=== PATIENT | male | born 1975 | race Caucasian/White ===

== ENCOUNTER 2019-11-05 09:48 | Inpatient (IN) | payer MEDICAID ==
[2019-11-05] VITALS (11 sets, daily range): BP systolic 113–154; BP diastolic 58–105
[~2019-11-05] VITALS: Ht 185.4 cm; Wt 81.0 kg
[~2019-11-05 09:48] MED LIST: amiodarone 50MG/ML inj IV ONE; sod chloride 0.9% 10ml flush syringe IV ONE
[2019-11-05 10:45] LABS: BASOPHILS # (AUTO) 0.1 X10'3 (0-0.2); BASOPHILS % (AUTO) 0.6 % (0-1); EOSINOPHILS # (AUTO) 0.1 X10'3 (0-0.9); EOSINOPHILS % (AUTO) 0.4 % (0-6); HEMATOCRIT 48.6 % (42.0-52.0); LYMPHOCYTES # (AUTO) 2.6 X10'3 (1.1-4.8); MEAN CORPUSCULAR HEMOGLOBIN 29.9 PG (27.0-31.0); MEAN CORPUSCULAR VOLUME 90.7 FL (78-98); MEAN PLATELET VOLUME 8.7 FL (7.4-10.4); MONOCYTES # (AUTO) 0.9 X10'3 (0-0.9); MONOCYTES % (AUTO) 4.4 % (2-12); NEUTROPHILS # (AUTO) 17.7 X10'3 (1.8-7.7); NEUTROPHILS % (AUTO) 82.6 % (42-75); PLATELET COUNT 380 X10'3 (140-440); RED BLOOD COUNT 5.36 X10'6 (4.70-6.10); RED CELL DISTRIBUTION WIDTH 13.2 % (11.5-14.5); WHITE BLOOD COUNT 21.4 X10'3 (4.5-11.0)
[2019-11-05 10:58] LABS: PARTIAL THROMBOPLASTIN TIME 26 SECONDS (22-32)
[2019-11-05 11:01] LABS: ALANINE AMINOTRANSFERASE 17 U/L (12-78); ALBUMIN 3.6 G/DL (3.4-5.0); ALBUMIN/GLOBULIN RATIO 0.9 (1.1-1.5); ALKALINE PHOSPHATASE 124 IU/L (46-116); ANION GAP 14 (8-16); ASPARTATE AMINO TRANSFERASE 32 U/L (10-37); BILIRUBIN,TOTAL 0.7 MG/DL (0.1-1.0); BLOOD UREA NITROGEN 25 MG/DL (7-18); CALCIUM 9.5 MG/DL (8.5-10.1); CHLORIDE 94 MMOL/L (99-107); CREATININE 1.56 MG/DL (0.60-1.10); MAGNESIUM 1.9 MG/DL (1.5-2.4); POTASSIUM 4.8 MMOL/L (3.5-5.1); SODIUM 130 MMOL/L (135-145); TOTAL CARBON DIOXIDE 21.6 MMOL/L (24-32); TOTAL PROTEIN 7.5 G/DL (6.4-8.2); eGFR 49 ML/MIN
[2019-11-05 11:09] LABS: GLUCOSE 512 MG/DL (70-104)
[2019-11-05] MEDS ORDERED: normal saline 1000ML IV soln IVB ONE (11:10)
[2019-11-05] MEDS ORDERED: iohexol 350MG/ML 100ml bottle IV ONE (11:10)
[2019-11-05] MEDS ORDERED: insulin regular, human 10 units/0.1 ml syringe IV ONE (11:10)
[2019-11-05] MEDS ORDERED: iohexol 350 MG/ML 50ML vial IV ONE (11:11)
[2019-11-05] MEDS ORDERED: NO HOME MEDS (11:12)
--- NOTE | 2019-11-05 11:14 | NUR ---
To CT scan via w/c, will resume IV fluid upon return from CT scan. Insulin dose is pending from pharmacy.
--- NOTE | 2019-11-05 11:40 | NUR ---
Phoned pharmacy to inquire about the pending insulin dose. She reported they will make it available for ED staff to remove from the omnicell.
[2019-11-05] MEDS ORDERED: insulin regular, human U-100 3ml vial - multi-dose IV ONE ×2 (11:45→15:00)
[2019-11-05] MEDS ORDERED: heparin 1,000 UNITS/NS 500ml 500 ML ONE (12:35)
[2019-11-05] MEDS ORDERED: fentaNYL/PF 50MCG/1 ML 2ML syringe ONE (12:35)
[2019-11-05] MEDS ORDERED: LIDOcaine 1%/PF 5ML 10 MG/ML VIAL ONE (12:35)
[2019-11-05] MEDS ORDERED: iohexol 300mg/ml 100ml inj. ONE (12:36)
--- NOTE | 2019-11-05 12:55 | NUR ---
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 Pt is going to have intervention for blockages in the lower extremities. It is unclear if the patient will return to the ED or go to an admission bed. Belongings and chart sent with the patient.
[2019-11-05] MEDS ORDERED: midazolam 2 mg/2 ml injection ONE ×2 (13:01→15:03)
[2019-11-05] MEDS ORDERED: tPA-cathflo 2mg/2ml IV flush 4 MG in normal saline 100ml IV soln 100 ML ICATH SCH ×2 (13:45→13:50)
[2019-11-05] MEDS ORDERED: heparin 10,000 units/1 ML INJ ONE (14:31)
[2019-11-05] MEDS ORDERED: LIDOcaine 1% (10mg/ml) 2ml vial ONE (14:31)
[2019-11-05] MEDS ORDERED: heparin 10,000 units/1 ML INJ IV ONE (14:50)
[2019-11-05] MEDS ORDERED: insulin regular, human U-100 3ml vial - multi-dose SQ ONE (15:00)
[2019-11-05] MEDS ORDERED: sevoflurane 250ml liquid IH ONE (15:00)
[2019-11-05] MEDS ORDERED: dexamethasone sod phosphate 10mg/ml inj ONE (15:00)
[2019-11-05 15:03] LABS: BASOPHILS # (AUTO) 0.1 X10'3 (0-0.2); BASOPHILS % (AUTO) 0.5 % (0-1); EOSINOPHILS % (AUTO) 0.1 % (0-6); HEMATOCRIT 45.8 % (42.0-52.0); HEMOGLOBIN 15.4 g/dl (14.0-17.9); LYMPHOCYTES # (AUTO) 2.6 X10'3 (1.1-4.8); LYMPHOCYTES % (AUTO) 14.1 % (21-51); MEAN CORPUSCULAR HEMOGLOBIN 30.2 PG (27.0-31.0); MEAN CORPUSCULAR HGB CONC 33.5 g/dL (33.0-36.5); MEAN PLATELET VOLUME 8.4 FL (7.4-10.4); MONOCYTES # (AUTO) 1.2 X10'3 (0-0.9); MONOCYTES % (AUTO) 6.3 % (2-12); NEUTROPHILS # (AUTO) 14.7 X10'3 (1.8-7.7); PLATELET COUNT 349 X10'3 (140-440); RED BLOOD COUNT 5.09 X10'6 (4.70-6.10); RED CELL DISTRIBUTION WIDTH 13.1 % (11.5-14.5); WHITE BLOOD COUNT 18.6 X10'3 (4.5-11.0)
--- NOTE | 2019-11-05 15:15 | NUR ---
Report received from Pool BRYSON RN. Pt. not admitted to ICU yet. blood sugar 307 on admission to unit. 12 units of regular insulin Sub q and 12 units of regular insulin ordered IV verbally by Dr. Kirby (Anesthesia). Heparin cardiac protocol ordered per Dr. Noble. 4000u bolus given by this RN per Cardiac heparin protocol. Heparin drip to be started in OR.
[2019-11-05 15:16] LABS: PARTIAL THROMBOPLASTIN TIME 25 SECONDS (22-32)
[2019-11-05] MEDS ORDERED: Insulin Reg/NS 100units/100mL 100 ML IV ONE (15:55)
[2019-11-05] MEDS ORDERED: insulin regular, human inj. 100 UNITS in normal saline 100ml IV IV SCH (16:00)
[2019-11-05] MEDS ORDERED: LIDOcaine 2% 10ml TOPICAL JELLY (Urojet) TP ONE (16:10)
[2019-11-05] MEDS ORDERED: sodium phosphate inj. 15 MMOL in dextrose 5%-water 250 ML IV PRN (16:10)
[2019-11-05] MEDS ORDERED: acetaminophen 325mg tablet PO PRN ×2 (16:10)
[2019-11-05] MEDS ORDERED: magnesium 4gm in 100ml NS 100 ML IV PRN (16:10)
[2019-11-05] MEDS ORDERED: magnesium 2GM in 50ml NS 50 ML IV PRN (16:10)
[2019-11-05] MEDS ORDERED: fentaNYL /PF 50mcg/ml 5ml ampule ONE (16:10)
[2019-11-05] MEDS ORDERED: potassium Cl 20 mEq SR tablet PO PRN (16:10)
[2019-11-05] MEDS ORDERED: morphine 4 MG/ML inj SYRINge IV PRN (16:10)
[2019-11-05] MEDS ORDERED: magnesium Cl slow-release 64mg tablet PO PRN (16:10)
[2019-11-05] MEDS ORDERED: sodium phosphate inj. 30 MMOL in dextrose 5%-water 250 ML IV PRN (16:10)
[2019-11-05] MEDS ORDERED: Neutra Phos packet PO PRN (16:10)
[2019-11-05] MEDS ORDERED: ondansetron/PF 4mg/2ml inj IV PRN (16:10)
[2019-11-05] MEDS ORDERED: ipratropium/albuterol 3ml nebule NEB PRN (16:10)
[2019-11-05] MEDS ORDERED: ePHEDrine 50MG/ML INJ. ONE (16:13)
[2019-11-05] MEDS ORDERED: ceFAZolin 1000mg inj ONE ×2 (16:13)
[2019-11-05] MEDS ORDERED: propofol inj 20 ML IV ONE ×2 (16:14)
[2019-11-05] MEDS ORDERED: LIDOcaine 2% (20mg/ml) 5ml vial ONE (16:14)
[2019-11-05] MEDS ORDERED: 0.9 % SODIUM CHLORIDE 10 ML VIAL ONE ×3 (16:14→16:26)
[2019-11-05] MEDS ORDERED: rocuronium 10mg/ml inj IV ONE (16:14)
[2019-11-05] MEDS ORDERED: phenylephrine 10mg/ml inj. ONE (16:26)
[2019-11-05] MEDS: NORepinephrine 8 MG in NS 250ml IV soln IV SCH (16:30)
[2019-11-05] MEDS ORDERED: ondansetron/PF 4mg/2ml inj ONE (16:33)
[2019-11-05] MEDS ORDERED: neostigmine methylsulfate 1 MG/ML 10ml vial ONE (16:50)
[2019-11-05] MEDS ORDERED: glycopyrrolate 0.2mg/ml inj ONE (16:50)
[2019-11-05] MEDS: heparin 25,000 UNIT/250ml bag 250 ML IV SCH (17:00)
--- NOTE | 2019-11-05 18:30 | NUR ---
Patient in room CICU 2013. I have received report from Nicole FIELDS, and had the opportunity to ask questions and assume patient care.
[2019-11-05] MEDS ORDERED: metoprolol tartrate 1mg/ml inj IV ONE ×2 (18:45→19:05)
[2019-11-05] MEDS: normal saline 1000ml 1,000 ML IV SCH (19:00)
[2019-11-05] MEDS: HYDROcodone/acetaminophen 10/325mg tab PO PRN (20:41)
[2019-11-05] MEDS: docusate sod 100mg capsule PO SCH (20:41)
[2019-11-05] MEDS: vancomycin/NS 1 GM ADD-VANTAGE 250 ML IV SCH (20:43)
[2019-11-05 22:48] LABS: CLARITY,URINE SLIGHTLY CLOUDY (Clear); COLOR,URINE YELLOW (Yellow); GLUCOSE, URINE NEGATIVE (Neg); KETONES,URINE NEGATIVE (Neg); LEUKOCYTE ESTERASE ,URINE NEGATIVE (Neg); NITRITES, URINE NEGATIVE (Neg); OCCULT BLOOD,URINE SMALL (Neg); PH,URINE 5.5 (4.8-8.0); PROTEIN,URINE TRACE mg/dl (Neg)
[2019-11-05 23:00] LABS: URINE AMPHETAMINE SCREEN POSITIVE (Neg); URINE BARBITUATE SCREEN NEGATIVE (Neg); URINE BENZODIAZEPINES SCREEN POSITIVE (Neg); URINE CANNABINOID SCREEN POSITIVE (Neg); URINE COCAINE SCREEN NEGATIVE (Neg); URINE METHADONE SCREEN NEGATIVE (Neg); URINE OPIATE SCREEN POSITIVE (Neg); URINE PHENCYCLIDINE SCREEN NEGATIVE (Neg)
[2019-11-05 23:15] LABS: UA COLLECTION TYPE FOLEY CATH
[2019-11-05 23:18] LABS: BACTERIA,URINE NONE SEEN /HPF (Neg); WBC,URINE 0-4 /HPF (0-4)
[2019-11-05 23:19] LABS: MUCUS STRANDS FEW /LPF (Neg); SQUAMOUS EPITHELIAL CELL,UR FEW /LPF (FEW)
[2019-11-05] MEDS: heparin 10,000 units/1 ML INJ IV PRN (23:31)
--- NOTE | 2019-11-05 23:35 | NUR ---
PTT came back subtherapeutic at 33. PT given heparin bolus and rate increase per protocol. Will continue to monitor.
[2019-11-06] VITALS (24 sets, daily range): BP systolic 114–189; BP diastolic 64–92
[2019-11-06 02:41] LABS: BASOPHILS % (AUTO) 0.2 % (0-1); EOSINOPHILS % (AUTO) 0 % (0-6); HEMATOCRIT 39.4 % (42.0-52.0); HEMOGLOBIN 13.2 g/dl (14.0-17.9); LYMPHOCYTES # (AUTO) 1.7 X10'3 (1.1-4.8); LYMPHOCYTES % (AUTO) 9.7 % (21-51); MEAN CORPUSCULAR HEMOGLOBIN 30.2 PG (27.0-31.0); MEAN CORPUSCULAR HGB CONC 33.6 g/dL (33.0-36.5); MEAN CORPUSCULAR VOLUME 89.8 FL (78-98); MEAN PLATELET VOLUME 8.4 FL (7.4-10.4); MONOCYTES # (AUTO) 1.3 X10'3 (0-0.9); MONOCYTES % (AUTO) 7.2 % (2-12); NEUTROPHILS # (AUTO) 14.5 X10'3 (1.8-7.7); NEUTROPHILS % (AUTO) 82.9 % (42-75); PLATELET COUNT 324 X10'3 (140-440); RED BLOOD COUNT 4.38 X10'6 (4.70-6.10); RED CELL DISTRIBUTION WIDTH 13.3 % (11.5-14.5); WHITE BLOOD COUNT 17.4 X10'3 (4.5-11.0)
[2019-11-06 02:50] LABS: ALANINE AMINOTRANSFERASE 21 U/L (12-78); ALBUMIN 2.7 G/DL (3.4-5.0); ALBUMIN/GLOBULIN RATIO 0.8 (1.1-1.5); ALKALINE PHOSPHATASE 90 IU/L (46-116); ANION GAP 8 (8-16); ASPARTATE AMINO TRANSFERASE 69 U/L (10-37); BILIRUBIN,TOTAL 0.4 MG/DL (0.1-1.0); BLOOD UREA NITROGEN 18 MG/DL (7-18); BUN/CREATININE RATIO 18.9 (5.4-32.0); CALCIUM 8.6 MG/DL (8.5-10.1); CHLORIDE 106 MMOL/L (99-107); CREATININE 0.95 MG/DL (0.60-1.10); GLUCOSE 137 MG/DL (70-104); MAGNESIUM 1.6 MG/DL (1.5-2.4); PHOSPHORUS 4.8 MG/DL (2.3-4.5); POTASSIUM 4.2 MMOL/L (3.5-5.1); SODIUM 137 MMOL/L (135-145); TOTAL CARBON DIOXIDE 23.3 MMOL/L (24-32); TOTAL PROTEIN 5.9 G/DL (6.4-8.2); eGFR 87 ML/MIN
[2019-11-06] MEDS: HYDROcodone/acetaminophen 10/325mg tab PO PRN ×4 (04:31→23:43)
[2019-11-06] MEDS: normal saline 1000ml 1,000 ML IV SCH ×2 (05:28→18:48)
[2019-11-06 06:16] LABS: PARTIAL THROMBOPLASTIN TIME 44 SECONDS (22-32)
--- NOTE | 2019-11-06 06:39 | NUR ---
Problems reprioritized. Patient report given, questions answered & plan of care reviewed with Art RN.
[2019-11-06 06:49] LABS: HEMOGLOBIN A1C 11.6 % (4.5-6.2)
[2019-11-06] MEDS: heparin 10,000 units/1 ML INJ IV PRN (07:06)
[2019-11-06] MEDS: pantoprazole 40mg Tablet.DR PO SCH (07:37)
[2019-11-06] MEDS: docusate sod 100mg capsule PO SCH ×2 (07:37→20:03)
[2019-11-06] MEDS: vancomycin/NS 1 GM ADD-VANTAGE 250 ML IV SCH ×3 (07:37→23:40)
[2019-11-06] MEDS ORDERED: digoxin 250mcg (0.25mg) tablet PO ONE (07:50)
[2019-11-06] MEDS: nicotine 21mg patch - 24 hr TD SCH (11:37)
--- NOTE | 2019-11-06 12:12 | NUR ---
DM Consult: A1C 11.6. Pt admit w/ bilateral leg pain DX bilateral leg embolus s/p bilateral popliteal embolectomy. DX L ventricular thrombus, hyponatremia, SANTOS resolved, cardiomyopathy possibly ischemic, leukocytosis, and in process of r/o rhabdomyolysis per MD. Pt hx smoking, homeless, and meth abuse positive for opiates, meth, and benzodiazepines on admit. Pt is newly DX DM per MD; currently receiving insulin drip. Pt is not aware of new DX at this time pending MD visit per RN today. Will be able to provide DM ed once pt educated on new DM DX by MD. PO 75% one item documented last night pending further PO today renal/carb controlled diet. LBM 11/03 receiving colace. Will continue to monitor. Rec: 1. continue carb controlled/renal diet 2. monitor for ONS needs 3. routine bowel care 4. scaled wt 5. DM ed once stable and new DM DX reviewed w/ pt Addendum: 11/06/19 at [address] Amended: Links added.
[2019-11-06] MEDS: NORepinephrine 8 MG in NS 250ml IV soln IV SCH (13:20)
--- NOTE | 2019-11-06 14:13 | NUR ---
ptt therapeutic, no change to heparin gtt.
[2019-11-06] MEDS: heparin 25,000 UNIT/250ml bag 250 ML IV SCH ×2 (14:19→19:16)
--- NOTE | 2019-11-06 15:24 | NUR ---
Insulin gtt canceled by
--- NOTE | 2019-11-06 18:36 | NUR ---
Patient in room CICU 2013. I have received report from Art RN, and had the opportunity to ask questions and assume patient care.
[2019-11-06] MEDS ORDERED: heparin 10,000 units/1 ML INJ IV ONE (19:20)
--- NOTE | 2019-11-06 19:23 | NUR ---
Dr King called after not being able to find a palpable or Doppler pulses in RT foot, LT foot has a Doppler post tibial but not a dorsalis pedis, both feet are warm, RT is slightly cooler than LT and both feet are more pale. This is a change in condition from when I left this AM. Received in report that PT's pulses had been diminishing through out the day. Dr King inquired about PT being anticoagulated, PT is on Cardiac Protocol, received order to change PT over to DVt Protocol. PTT drawn and will follow protocol accordingly. Will continue to monitor.
[2019-11-06] MEDS: morphine 2 MG/ML inj. syringe IV PRN ×2 (19:55→21:01)
[2019-11-06] MEDS: lactobacillus rhamnosus 10,000 MMU CELLS/CAPSULE PO SCH (20:02)
[2019-11-07] VITALS (21 sets, daily range): BP systolic 102–183; BP diastolic 65–98
--- NOTE | 2019-11-07 | NUR ---
PT resting with no s/s of distress noted at this time. VSS. Bed is locked and low. Call light is within reach. Will continue to monitor.
[2019-11-07] MEDS: normal saline 1000ml 1,000 ML IV SCH (01:56)
[2019-11-07 02:54] LABS: BASOPHILS # (AUTO) 0.1 X10'3 (0-0.2); BASOPHILS % (AUTO) 0.7 % (0-1); EOSINOPHILS # (AUTO) 0.1 X10'3 (0-0.9); EOSINOPHILS % (AUTO) 0.6 % (0-6); HEMATOCRIT 36.5 % (42.0-52.0); HEMOGLOBIN 12.1 g/dl (14.0-17.9); LYMPHOCYTES # (AUTO) 3.7 X10'3 (1.1-4.8); LYMPHOCYTES % (AUTO) 18.3 % (21-51); MEAN CORPUSCULAR HEMOGLOBIN 30.2 PG (27.0-31.0); MEAN CORPUSCULAR HGB CONC 33.2 g/dL (33.0-36.5); MONOCYTES # (AUTO) 1.6 X10'3 (0-0.9); MONOCYTES % (AUTO) 8.2 % (2-12); NEUTROPHILS # (AUTO) 14.4 X10'3 (1.8-7.7); NEUTROPHILS % (AUTO) 72.2 % (42-75); PLATELET COUNT 304 X10'3 (140-440); RED BLOOD COUNT 4.01 X10'6 (4.70-6.10); RED CELL DISTRIBUTION WIDTH 13.3 % (11.5-14.5)
[2019-11-07 03:05] LABS: ALANINE AMINOTRANSFERASE 36 U/L (12-78); ALBUMIN 2.5 G/DL (3.4-5.0); ALBUMIN/GLOBULIN RATIO 0.8 (1.1-1.5); ALKALINE PHOSPHATASE 105 IU/L (46-116); ANION GAP 7 (8-16); ASPARTATE AMINO TRANSFERASE 67 U/L (10-37); BILIRUBIN,TOTAL 0.4 MG/DL (0.1-1.0); BLOOD UREA NITROGEN 11 MG/DL (7-18); BUN/CREATININE RATIO 11.5 (5.4-32.0); CHLORIDE 102 MMOL/L (99-107); CREATININE 0.96 MG/DL (0.60-1.10); GLUCOSE 250 MG/DL (70-104); MAGNESIUM 1.5 MG/DL (1.5-2.4); PHOSPHORUS 2.9 MG/DL (2.3-4.5); POTASSIUM 3.6 MMOL/L (3.5-5.1); SODIUM 133 MMOL/L (135-145); TOTAL PROTEIN 5.6 G/DL (6.4-8.2); eGFR 85 ML/MIN
[2019-11-07] MEDS: HYDROcodone/acetaminophen 10/325mg tab PO PRN ×4 (03:50→22:00)
--- NOTE | 2019-11-07 06:30 | NUR ---
Patient in room CICU 2013. I have received report from DONNIE George and had the opportunity to ask questions and assume patient care.
--- NOTE | 2019-11-07 06:44 | NUR ---
Problems reprioritized. Patient report given, questions answered & plan of care reviewed with Berny FIELDS.
[2019-11-07] MEDS ORDERED: VANCOMYCIN LEVEL IV ONE (07:30)
[2019-11-07] MEDS: vancomycin/NS 1 GM ADD-VANTAGE 250 ML IV SCH (07:41)
[2019-11-07] MEDS: lactobacillus rhamnosus 10,000 MMU CELLS/CAPSULE PO SCH ×2 (07:42→19:53)
[2019-11-07] MEDS: pantoprazole 40mg Tablet.DR PO SCH (07:42)
[2019-11-07] MEDS: digoxin 125mcg (0.125mg) tablet PO SCH (07:42)
[2019-11-07] MEDS: docusate sod 100mg capsule PO SCH ×2 (07:42→19:53)
[2019-11-07] MEDS: nicotine 21mg patch - 24 hr TD SCH (07:42)
[2019-11-07] MEDS ORDERED: dextrose 50%-water 50ml dispensing syringe IV PRN ×2 (07:50)
[2019-11-07] MEDS ORDERED: glucagon, human recombinant 1mg kit SUBCUT PRN (07:50)
[2019-11-07] MEDS ORDERED: MESSAGE TO PHARMACY PO ONE (07:50)
[2019-11-07] MEDS ORDERED: dextrose ORAL solution 15 GM/59 ML bottle PO PRN (07:50)
[2019-11-07] MEDS: insulin Lispro (HumaLOG) vial - multi-dose SQ SCH ×3 (09:21→19:53)
[2019-11-07] MEDS: carVEDilol 3.125mg tablet PO SCH ×2 (09:58→19:53)
--- NOTE | 2019-11-07 10:24 | NUR ---
patient doing well, central line and west removed, urinal placed at bedside.
[2019-11-07] MEDS: heparin 25,000 UNIT/250ml bag 250 ML IV SCH ×2 (10:29→17:36)
--- NOTE | 2019-11-07 14:00 | NUR ---
patient had change in neuro status, was getting up with PT and suddenly had some expressive aphagia. after about 5 minute patient aphagia resolved. call made to Dr. King and stroke alert was called per MD. Patient taken for CT and CTA. Paula neuro RN came to bedside for tele neuro consult. will continue with heparin gtt and monitor neuro status.
[2019-11-07] MEDS ORDERED: iohexol 350MG/ML 100ml bottle IV ONE (15:07)
--- NOTE | 2019-11-07 15:44 | NUR ---
Malnutrition consult and DM consult. A1C 11.6; aware of DM and stated in note. Attempted bedside visit however patient not in room. Spoke with stroke nurse, reports patient in CT for stroke alert. Per documentation stroke scale is zero. RN stated that after the CT will have neuro consult. Will attempt bedside education and interview at another time. Will need written DM education handout with verbal review and referral to outpatient DM education class (currently on hold, provided with number for when classes resume). Has been eating 50-74% of meals. Low pt stated weight os 64 kg, need accurate scale weight for assessment of malnutrition. No edema. Will continue to follow and monitor for DM education and malnutrition. Rec: 1. continue carb controlled/renal diet 2. monitor for ONS needs 3. routine bowel care 4. need new scaled wt 5. provide written and verbal DM education Addendum: 11/07/19 at [address] Amended: Links added.
[2019-11-07] MEDS ORDERED: bisacodyl 10mg suppository rectal RC PRN (16:10)
[2019-11-07] MEDS ORDERED: lactulose 20gm/30ml cup PO PRN (16:10)
[2019-11-07] MEDS: VANCOmycin 1250MG/NS 250ml Bag 250 ML IV SCH (16:19)
--- NOTE | 2019-11-07 16:45 | NUR ---
patient report called to DONNIE Fuentes, patient stable and transported in wheelchair. placed on tele monitor and transferred with all belongings.
[2019-11-07] MEDS: heparin 10,000 units/1 ML INJ IV PRN (17:34)
--- NOTE | 2019-11-07 18:30 | NUR ---
Problems reprioritized. Patient report given, questions answered & plan of care reviewed with Marleni FIELDS.
--- NOTE | 2019-11-07 18:56 | NUR ---
Patient in room ORTHO 4022. I have received report from Gina FIELDS and had the opportunity to ask questions and assume patient care.
--- NOTE | 2019-11-07 19:33 | NUR ---
NOTIFIED PATIENT HAD A 6 BEAT RUN OF VTACH AT 1910, PATIENT DENIES ANY DISCOMFORT AND EATING DINNER. RECHECKED WITH CAGE TENDER AND PATIENT IN SR AT THIS TIME. VITAL SIGNS UNCHANGED
[2019-11-07] MEDS ORDERED: warfarin 5mg tablet PO ONE (21:00)
[2019-11-07] MEDS: insulin glargine (Lantus) pen - multi-dose SQ SCH (21:09)
--- NOTE | 2019-11-07 21:25 | NUR ---
I spoke to Pauly Carrion NP who is extrusion die template maker for the critical care group and he said to transfer the patient to the telemetry unit floor as previously ordered. He was made aware of the pt's frequent VT on tele without symptoms and electrolytes stable and vitals stable. The pt's cardiac status is more urgent then the neurological status at this point; I made Colton aware of the results of the acute to subacute ischemia on the ct of head done today. Also informed him of the pt's EF 20% and clot to the left ventricle and issues with clots to the LE's. I spoke to the nursing pipelines supervisor and he has given me a room assignment on Telemetry. Patient is still on heparin drip for his cardiac/ vascular issues in regarding the clots and will help in anticoagulant for stroke.
[2019-11-08] VITALS (22 sets, daily range): BP systolic 94–139; BP diastolic 54–110
[2019-11-08] MEDS: VANCOmycin 1250MG/NS 250ml Bag 250 ML IV SCH ×2 (00:16→08:51)
[2019-11-08 00:48] LABS: ALANINE AMINOTRANSFERASE 35 U/L (12-78); ALBUMIN 2.1 G/DL (3.4-5.0); ALBUMIN/GLOBULIN RATIO 0.7 (1.1-1.5); ALKALINE PHOSPHATASE 132 IU/L (46-116); ANION GAP 9 (8-16); ASPARTATE AMINO TRANSFERASE 53 U/L (10-37); BASOPHILS # (AUTO) 0.2 X10'3 (0-0.2); BASOPHILS % (AUTO) 1.2 % (0-1); BILIRUBIN,TOTAL 0.3 MG/DL (0.1-1.0); BLOOD UREA NITROGEN 12 MG/DL (7-18); BUN/CREATININE RATIO 14.8 (5.4-32.0); CALCIUM 8.3 MG/DL (8.5-10.1); CHLORIDE 102 MMOL/L (99-107); CREATININE 0.81 MG/DL (0.60-1.10); EOSINOPHILS # (AUTO) 0.1 X10'3 (0-0.9); EOSINOPHILS % (AUTO) 0.7 % (0-6); GLUCOSE 165 MG/DL (70-104); HEMOGLOBIN 11.4 g/dl (14.0-17.9); LYMPHOCYTES # (AUTO) 4.4 X10'3 (1.1-4.8); LYMPHOCYTES % (AUTO) 28.3 % (21-51); MAGNESIUM 1.8 MG/DL (1.5-2.4); MEAN CORPUSCULAR HGB CONC 34.5 g/dL (33.0-36.5); MEAN PLATELET VOLUME 9.4 FL (7.4-10.4); MONOCYTES # (AUTO) 1.5 X10'3 (0-0.9); MONOCYTES % (AUTO) 9.3 % (2-12); NEUTROPHILS # (AUTO) 9.5 X10'3 (1.8-7.7); NEUTROPHILS % (AUTO) 60.5 % (42-75); PHOSPHORUS 2.5 MG/DL (2.3-4.5); PLATELET COUNT 286 X10'3 (140-440); POTASSIUM 3.3 MMOL/L (3.5-5.1); RED BLOOD COUNT 3.66 X10'6 (4.70-6.10); RED CELL DISTRIBUTION WIDTH 13.4 % (11.5-14.5); SODIUM 137 MMOL/L (135-145); TOTAL CARBON DIOXIDE 26.1 MMOL/L (24-32); TOTAL PROTEIN 5.3 G/DL (6.4-8.2); WHITE BLOOD COUNT 15.7 X10'3 (4.5-11.0); eGFR > 90 ML/MIN
--- NOTE | 2019-11-08 00:57 | NUR ---
VERBAL REPORT CALLED TO JOIE FIELDS ON TELEMETRY FLOOR, QUESTIONS ANSWERED AND PATIENT TRANSFERRED IN ORTHO BED WITH MEDS AND BELONGINGS FOR CLOSER MONITORING OF CARDIAC ISSUES.
[2019-11-08] MEDS: potassium Cl 20 mEq SR tablet PO PRN ×7 (01:35→23:43)
--- NOTE | 2019-11-08 03:08 | NUR ---
pt sustained V. Tach with no pulse, CPR started, code blue initiated, one shock delivered pt returned to sinus rhythm Addendum: 11/08/19 at 0418 by Oniel Davison RN 150mg of amiodarone given IV, pt transferred to ICU.
--- NOTE | 2019-11-08 03:24 | NUR ---
Patient arrived to CICU status post CODE BLUE. Patient report at bedside from DONNIE Cabrera. Patient is awake and alert x4. Patient placed on monitor worker showing normal sinus rhythm at 88 with frequent Multifocal PVC's. Loading dose of Amiodarone 150mg administered prior to transfer from PCU. Bilateral lung sounds clear to the upper lobes, diminished to the bases. Oxygen in place via nasal cannula at 2 lpm. IV heparin infusing at 1400 units/hr. Patient with 20 ga IV to right AC and right forearm. Patient with surgical incisions to bilateral lower extremities, island dressings clean, dry and intact. Pulses to lower extremities present by doppler. Prophylactic optifoam dressing to coccyx. Patient was incontinent of urine during code. Defibrillation pads left on chest. Defibrillator at bedside. Magnesium replacement and amiodarone infusions started per provider orders. Patient received one PO dose of Potassium prior to events. Will continue to monitor, patient in view of DONNIE
--- NOTE | 2019-11-08 03:30 | NUR ---
Responded to code blue; upon arrival, patient unresponsive, CPR in progress; checked rhythm on monitor and pt in rapid vtach; compressions stopped, pt shocked x 1 at 150J and CPR resumed very briefly and then pt awake, moving extremities; pt answering questions, BP 143/78, RT at bedside assisting w/ventilations, pt placed NRB; .Dr. Mike responded to code, gave 150mg amio IV as ordered; pt transferred on monitor w/belongings to [facility] room 2013 at 0325; Dionne aware. Addendum: 11/08/19 at 0576 by Bonita Brantley RN Patients belonging bag x1, cell phone and buccaro with patient.
[2019-11-08] MEDS ORDERED: magnesium 2GM in 50ml NS 50 ML IV ONE (03:40)
[2019-11-08] MEDS: amiodarone/D5 360MG/200ML BAG 200 ML IV SCH ×5 (03:55→21:27)
[2019-11-08] MEDS: HYDROcodone/acetaminophen 5mg/325mg tablet PO PRN (04:50)
--- NOTE | 2019-11-08 06:20 | NUR ---
Problems reprioritized. Patient report given, questions answered & plan of care reviewed with DONNIE Cantu.
--- NOTE | 2019-11-08 06:58 | NUR ---
Troponin 4.4 reported to Spencer; orders received
[2019-11-08] MEDS: nicotine 21mg patch - 24 hr TD SCH (08:00)
[2019-11-08] MEDS: docusate sod 100mg capsule PO SCH ×2 (08:50→20:31)
[2019-11-08] MEDS: lactobacillus rhamnosus 10,000 MMU CELLS/CAPSULE PO SCH ×2 (08:50→20:30)
[2019-11-08] MEDS: lisinopril 2.5mg tablet PO SCH (08:50)
[2019-11-08] MEDS: carVEDilol 3.125mg tablet PO SCH ×2 (08:50→20:31)
[2019-11-08] MEDS: digoxin 125mcg (0.125mg) tablet PO SCH (08:51)
[2019-11-08] MEDS: pantoprazole 40mg Tablet.DR PO SCH (08:53)
[2019-11-08] MEDS: heparin 25,000 UNIT/250ml bag 250 ML IV SCH (09:08)
[2019-11-08] MEDS: insulin Lispro (HumaLOG) vial - multi-dose SQ SCH ×3 (09:14→18:48)
[2019-11-08 12:57] LABS: POTASSIUM 3.6 MMOL/L (3.5-5.1)
[2019-11-08 13:07] LABS: TROPONIN I 3.43 NG/ML (0.0-0.05)
--- NOTE | 2019-11-08 13:13 | NUR ---
Critical trop trending down reported to
--- NOTE | 2019-11-08 13:28 | NUR ---
F/u for consults: Attempted bedside visit however pt sleeping. Pt averaging 75-100% PO intake with some fluctuations meeting nutrient needs. No new scaled weight at this time. Pt s/p cardiac arrest this morning per MD notes. LBM 11/05, receiving routine bowel care. Will need to f/u for DM education and further malnutrition assessment once stable. Addendum: 11/08/19 at [address] Amended: Links added.
[2019-11-08] MEDS ORDERED: VANCOMYCIN LEVEL IV ONE (15:30)
[2019-11-08] MEDS: vancomycin/NS 1 GM ADD-VANTAGE 250 ML X 1 DOSE IV SCH (16:51)
--- NOTE | 2019-11-08 18:20 | NUR ---
Patient in room CICU 2013. I have received report from DONNIE Cantu and had the opportunity to ask questions and assume patient care. Patient denies CP, SOB, dizziness, n/v and rated pain 0/10
[2019-11-08] MEDS ORDERED: warfarin 5mg tablet PO SCH (21:00)
[2019-11-08] MEDS: insulin glargine (Lantus) pen - multi-dose SQ SCH (21:24)
--- NOTE | 2019-11-08 22:33 | NUR ---
Per pharmacist hold Vancomycin scheduled at 0000 on 11/09/19. Last Vancomycin trough on 11/07 at 1534 was 20.9 Addendum: 11/08/19 at 2244 by Quincy Boyer RN Harish
--- NOTE | 2019-11-08 23:52 | NUR ---
Called Dr. Carrion to ask for magnesium level. Per Dr. Carrion mag at 1.8 is okay.
[2019-11-09] VITALS (23 sets, daily range): BP systolic 94–151; BP diastolic 60–105
[2019-11-09] MEDS: heparin 25,000 UNIT/250ml bag 250 ML IV SCH ×2 (02:32→20:58)
[2019-11-09 04:51] LABS: BASOPHILS # (AUTO) 0.2 X10'3 (0-0.2); EOSINOPHILS # (AUTO) 0.2 X10'3 (0-0.9); HEMATOCRIT 37.1 % (42.0-52.0); HEMOGLOBIN 12.5 g/dl (14.0-17.9); LYMPHOCYTES # (AUTO) 3.8 X10'3 (1.1-4.8); LYMPHOCYTES % (AUTO) 25.2 % (21-51); MEAN CORPUSCULAR HEMOGLOBIN 29.9 PG (27.0-31.0); MEAN CORPUSCULAR HGB CONC 33.6 g/dL (33.0-36.5); MEAN PLATELET VOLUME 9.4 FL (7.4-10.4); MONOCYTES # (AUTO) 1.4 X10'3 (0-0.9); MONOCYTES % (AUTO) 8.9 % (2-12); NEUTROPHILS # (AUTO) 9.7 X10'3 (1.8-7.7); NEUTROPHILS % (AUTO) 63.9 % (42-75); PLATELET COUNT 344 X10'3 (140-440); RED BLOOD COUNT 4.16 X10'6 (4.70-6.10); RED CELL DISTRIBUTION WIDTH 13.6 % (11.5-14.5); WHITE BLOOD COUNT 15.2 X10'3 (4.5-11.0)
[2019-11-09 05:07] LABS: PARTIAL THROMBOPLASTIN TIME 51 SECONDS (22-32)
[2019-11-09 05:09] LABS: ALANINE AMINOTRANSFERASE 95 U/L (12-78); ALBUMIN 2.3 G/DL (3.4-5.0); ALBUMIN/GLOBULIN RATIO 0.6 (1.1-1.5); ALKALINE PHOSPHATASE 258 IU/L (46-116); ANION GAP 6 (8-16); ASPARTATE AMINO TRANSFERASE 119 U/L (10-37); BILIRUBIN,TOTAL 0.3 MG/DL (0.1-1.0); BLOOD UREA NITROGEN 9 MG/DL (7-18); BUN/CREATININE RATIO 12.3 (5.4-32.0); CALCIUM 8.4 MG/DL (8.5-10.1); CHLORIDE 102 MMOL/L (99-107); CREATININE 0.73 MG/DL (0.60-1.10); GLUCOSE 173 MG/DL (70-104); MAGNESIUM 1.9 MG/DL (1.5-2.4); PHOSPHORUS 2.5 MG/DL (2.3-4.5); POTASSIUM 4.4 MMOL/L (3.5-5.1); SODIUM 135 MMOL/L (135-145); TOTAL CARBON DIOXIDE 26.8 MMOL/L (24-32); TOTAL PROTEIN 5.9 G/DL (6.4-8.2); eGFR > 90 ML/MIN
--- NOTE | 2019-11-09 06:15 | NUR ---
Problems reprioritized. Patient report given, questions answered & plan of care reviewed with Art, RN. Patient stable at shift change
--- NOTE | 2019-11-09 07:11 | NUR ---
Pt had a run of v-tach at 0648. Pt was alert, but drowsy. Pt briefly lost consciousness. Compressions were started but halted after pt rate converted to a sinus rhythm. Called Dr. Lauren who ordered 2gm of mag to be run over 4 hours and to keep the K above 4.5
[2019-11-09] MEDS ORDERED: magnesium 2GM in 50ml NS 50 ML IV STA (07:17)
[2019-11-09] MEDS: pantoprazole 40mg Tablet.DR PO SCH (07:30)
--- NOTE | 2019-11-09 07:44 | NUR ---
Pt in [facility] again. Called Lidocaine 100mg push and put on Lidocaine gtt
--- NOTE | 2019-11-09 07:47 | NUR ---
Lidocaine push given, call to pharmacy, they are setting up lido gtt order.
[2019-11-09] MEDS ORDERED: LIDOcaine 2 gm/250ml D5W 250 ML IV SCH (07:50)
[2019-11-09] MEDS: amiodarone/D5 360MG/200ML BAG 200 ML IV SCH ×4 (08:00→20:59)
[2019-11-09] MEDS: vancomycin/NS 1 GM ADD-VANTAGE 250 ML X 1 DOSE IV SCH ×4 (08:00→23:53)
[2019-11-09] MEDS: carVEDilol 3.125mg tablet PO SCH ×2 (08:49→20:45)
[2019-11-09] MEDS: docusate sod 100mg capsule PO SCH ×2 (08:49→20:44)
[2019-11-09] MEDS: lactobacillus rhamnosus 10,000 MMU CELLS/CAPSULE PO SCH ×2 (08:49→20:44)
[2019-11-09] MEDS: digoxin 125mcg (0.125mg) tablet PO SCH (08:50)
[2019-11-09] MEDS: lisinopril 2.5mg tablet PO SCH (08:50)
[2019-11-09] MEDS: nicotine 21mg patch - 24 hr TD SCH (08:51)
[2019-11-09] MEDS: insulin Lispro (HumaLOG) vial - multi-dose SQ SCH ×3 (09:25→18:48)
--- NOTE | 2019-11-09 10:30 | NUR ---
Ptt is therapeutic. No change will be made to the rate.
--- NOTE | 2019-11-09 11:18 | NUR ---
F/u: Pt PO has declined to 0% breakfast this AM down from 75-100% avg previously meeting needs. Pt still having episodes of vtach per RN notes s/p code blue yesterday AM w/ severe cardiomyopathy per MD. Pt currently not appropriate for new DM DX diet ed; would benefit once more stable. Pt has no edema, good PO hx, no significant weakness noted, new scaled wt 73.3kg making BMI 21. Only accurate wt hx. At this time pt does not meet minimum malnutrition criteria. Will continue to monitor. Rec: 1. continue carb controlled/renal diet 2. monitor for ONS needs 3. routine bowel care 4. need new scaled wt 5. provide written and verbal DM education once more stable prior to d/c Addendum: 11/09/19 at [address] Amended: Links added.
[2019-11-09] MEDS: amiodarone 200mg tablet PO SCH ×2 (13:08→20:45)
[2019-11-09] MEDS: potassium Cl 20 mEq SR tablet PO PRN ×2 (13:08→16:51)
[2019-11-09] MEDS ORDERED: VANCOMYCIN LEVEL IV ONE (15:30)
--- NOTE | 2019-11-09 17:23 | NUR ---
Pulses in pt feet are only heard through doppler.
--- NOTE | 2019-11-09 18:30 | NUR ---
Patient in room CICU 2013. I have received report from Art RN and had the opportunity to ask questions and assume patient care.
[2019-11-09] MEDS: insulin glargine (Lantus) pen - multi-dose SQ SCH (20:55)
[2019-11-09] MEDS ORDERED: warfarin 5mg tablet PO ONE (21:00)
[2019-11-09] MEDS: dextrose ORAL solution 15 GM/59 ML bottle PO PRN (23:29)
--- NOTE | 2019-11-09 23:30 | NUR ---
Went into check on patient and patient was diaphoretic, pale and cool. Patient complains of being hot. Obtained Blood Sugar and it was 62. Gave patient orange Juice and Ant crackers and well as oral Dex 50. Recheck blood glucose is 98. Will continue to monitor patient closely.
[2019-11-10] VITALS (24 sets, daily range): BP systolic 91–132; BP diastolic 58–95
[2019-11-10] MEDS: amiodarone/D5 360MG/200ML BAG 200 ML IV SCH ×3 (02:42→20:04)
[2019-11-10 05:34] LABS: ALANINE AMINOTRANSFERASE 155 U/L (12-78); ALBUMIN 2.3 G/DL (3.4-5.0); ALBUMIN/GLOBULIN RATIO 0.6 (1.1-1.5); ALKALINE PHOSPHATASE 353 IU/L (46-116); ANION GAP 5 (8-16); ASPARTATE AMINO TRANSFERASE 175 U/L (10-37); BILIRUBIN,TOTAL 0.2 MG/DL (0.1-1.0); BLOOD UREA NITROGEN 13 MG/DL (7-18); BUN/CREATININE RATIO 12.7 (5.4-32.0); CALCIUM 8.7 MG/DL (8.5-10.1); CHLORIDE 100 MMOL/L (99-107); CREATININE 1.02 MG/DL (0.60-1.10); GLUCOSE 321 MG/DL (70-104); MAGNESIUM 2.1 MG/DL (1.5-2.4); PHOSPHORUS 3.9 MG/DL (2.3-4.5); POTASSIUM 4.4 MMOL/L (3.5-5.1); SODIUM 134 MMOL/L (135-145); TOTAL CARBON DIOXIDE 28.7 MMOL/L (24-32); eGFR 80 ML/MIN
[2019-11-10 05:36] LABS: PARTIAL THROMBOPLASTIN TIME 49 SECONDS (22-32)
[2019-11-10 05:40] LABS: BASOPHILS # (AUTO) 0.1 X10'3 (0-0.2); BASOPHILS % (AUTO) 0.7 % (0-1); EOSINOPHILS # (AUTO) 0.1 X10'3 (0-0.9); EOSINOPHILS % (AUTO) 0.9 % (0-6); HEMATOCRIT 36.6 % (42.0-52.0); HEMOGLOBIN 12.3 g/dl (14.0-17.9); LYMPHOCYTES # (AUTO) 3.5 X10'3 (1.1-4.8); LYMPHOCYTES % (AUTO) 23.5 % (21-51); MEAN CORPUSCULAR HGB CONC 33.7 g/dL (33.0-36.5); MEAN CORPUSCULAR VOLUME 89.2 FL (78-98); MEAN PLATELET VOLUME 10.4 FL (7.4-10.4); MONOCYTES # (AUTO) 1.2 X10'3 (0-0.9); MONOCYTES % (AUTO) 7.9 % (2-12); PLATELET COUNT 395 X10'3 (140-440); RED BLOOD COUNT 4.11 X10'6 (4.70-6.10); RED CELL DISTRIBUTION WIDTH 13.8 % (11.5-14.5); WHITE BLOOD COUNT 14.9 X10'3 (4.5-11.0)
[2019-11-10] MEDS: carVEDilol 3.125mg tablet PO SCH ×2 (08:00→20:26)
[2019-11-10] MEDS: nicotine 21mg patch - 24 hr TD SCH ×2 (08:00→08:24)
[2019-11-10] MEDS: amiodarone 200mg tablet PO SCH ×3 (08:22→20:26)
[2019-11-10] MEDS: pantoprazole 40mg Tablet.DR PO SCH (08:22)
[2019-11-10] MEDS: lactobacillus rhamnosus 10,000 MMU CELLS/CAPSULE PO SCH ×2 (08:23→20:26)
[2019-11-10] MEDS: lisinopril 2.5mg tablet PO SCH (08:23)
[2019-11-10] MEDS: docusate sod 100mg capsule PO SCH ×2 (08:23→20:26)
[2019-11-10] MEDS: vancomycin/NS 1 GM ADD-VANTAGE 250 ML X 1 DOSE IV SCH ×2 (08:24→16:13)
[2019-11-10] MEDS: potassium Cl 20 mEq SR tablet PO PRN ×2 (12:15→16:13)
--- NOTE | 2019-11-10 12:28 | NUR ---
Pt PTT reviewed and is therapeutic at 53. Next ptt will be ordered.
--- NOTE | 2019-11-10 12:43 | NUR ---
F/u: Pt more stable today and more appropriate per RN. Pt seen by RD for thorough written/verbal DM ed w/ RD contact information, new DM pamphlet, and new DM booklet provided. RD reviewed hydration, proteins, types of carbs, carb sources, portion sizing, nutrition facts labels, and importance of checking Glu regularly. Pt hx homeless and RD reviewed best food options for optimal Glu control if pt gets to point where he is able to choose available meal options. Pt declines further questions at this time. RD encouraged pt to attend CDE course once reopens and to call/e-mail RD if further questions following discharge as well as admit. Addendum: 11/10/19 at [address] Amended: Links added.
[2019-11-10] MEDS: insulin Lispro (HumaLOG) vial - multi-dose SQ SCH ×2 (13:06→20:35)
--- NOTE | 2019-11-10 13:16 | NUR ---
Pt walking with physical therapy
--- NOTE | 2019-11-10 15:21 | NUR ---
Dr Dill talked with pt and told him that he needs a heart cath, pt will be put on the schedule for Sunday. Dr. Dill also wanted to get an HIV and Hepatitis panel, which have been ordered. Pt to receive one mg of coumadin this evening.
[2019-11-10] MEDS ORDERED: VANCOMYCIN LEVEL IV ONE (15:30)
[2019-11-10 16:53] LABS: HIV ANTIBODY 1&2 RAPID NON-REACTIVE (Neg)
--- NOTE | 2019-11-10 18:19 | NUR ---
Patient in room CICU 2013. I have received report and had the opportunity to ask questions and assume patient care.
[2019-11-10] MEDS: insulin glargine (Lantus) pen - multi-dose SQ SCH (20:35)
[2019-11-10] MEDS ORDERED: warfarin 1mg tablet PO ONE (21:00)
[2019-11-10] MEDS ORDERED: warfarin 2.5mg tablet PO ONE (21:00)
[2019-11-11] VITALS (24 sets, daily range): BP systolic 101–148; BP diastolic 59–103
[2019-11-11] MEDS: VANCOmycin 1250MG/NS 250ml Bag 250 ML IV SCH ×5 (00:32→23:55)
[2019-11-11 01:01] LABS: BASOPHILS # (AUTO) 0.2 X10'3 (0-0.2); BASOPHILS % (AUTO) 1.4 % (0-1); EOSINOPHILS # (AUTO) 0.1 X10'3 (0-0.9); EOSINOPHILS % (AUTO) 0.9 % (0-6); HEMOGLOBIN 11.9 g/dl (14.0-17.9); LYMPHOCYTES # (AUTO) 3.8 X10'3 (1.1-4.8); MEAN CORPUSCULAR HEMOGLOBIN 30.1 PG (27.0-31.0); MEAN CORPUSCULAR HGB CONC 33.2 g/dL (33.0-36.5); MEAN CORPUSCULAR VOLUME 90.7 FL (78-98); MONOCYTES # (AUTO) 1.3 X10'3 (0-0.9); MONOCYTES % (AUTO) 7.8 % (2-12); NEUTROPHILS # (AUTO) 11.2 X10'3 (1.8-7.7); NEUTROPHILS % (AUTO) 66.9 % (42-75); PLATELET COUNT 403 X10'3 (140-440); RED BLOOD COUNT 3.96 X10'6 (4.70-6.10); WHITE BLOOD COUNT 16.7 X10'3 (4.5-11.0)
[2019-11-11 01:11] LABS: ALANINE AMINOTRANSFERASE 114 U/L (12-78); ALBUMIN 2.2 G/DL (3.4-5.0); ALBUMIN/GLOBULIN RATIO 0.6 (1.1-1.5); ALKALINE PHOSPHATASE 318 IU/L (46-116); ANION GAP 5 (8-16); ASPARTATE AMINO TRANSFERASE 84 U/L (10-37); BILIRUBIN,TOTAL 0.2 MG/DL (0.1-1.0); BLOOD UREA NITROGEN 10 MG/DL (7-18); BUN/CREATININE RATIO 10.4 (5.4-32.0); CALCIUM 8.4 MG/DL (8.5-10.1); CHLORIDE 102 MMOL/L (99-107); CREATININE 0.96 MG/DL (0.60-1.10); GLUCOSE 206 MG/DL (70-104); MAGNESIUM 1.7 MG/DL (1.5-2.4); PHOSPHORUS 3.3 MG/DL (2.3-4.5); POTASSIUM 4.1 MMOL/L (3.5-5.1); SODIUM 135 MMOL/L (135-145); TOTAL CARBON DIOXIDE 28.4 MMOL/L (24-32); TOTAL PROTEIN 5.8 G/DL (6.4-8.2); eGFR 85 ML/MIN
[2019-11-11] MEDS: heparin 10,000 units/1 ML INJ IV PRN (01:35)
[2019-11-11] MEDS: magnesium Cl slow-release 64mg tablet PO PRN ×2 (01:36→07:38)
[2019-11-11] MEDS: potassium Cl 20 mEq SR tablet PO PRN ×2 (01:37→07:38)
[2019-11-11] MEDS: heparin 25,000 UNIT/250ml bag 250 ML IV SCH ×3 (01:38→13:16)
[2019-11-11] MEDS: HYDROcodone/acetaminophen 10/325mg tab PO PRN (03:00)
[2019-11-11] MEDS: amiodarone/D5 360MG/200ML BAG 200 ML IV SCH ×4 (04:22→20:12)
--- NOTE | 2019-11-11 06:17 | NUR ---
Patient in room [facility] 2013. I have received report from Marni FIELDS and had the opportunity to ask questions and assume patient care. Addendum: 11/11/19 at 0617 by Jessica Tobias RN Amended: Links added.
[2019-11-11] MEDS: lactobacillus rhamnosus 10,000 MMU CELLS/CAPSULE PO SCH ×2 (07:37→20:08)
[2019-11-11] MEDS: lisinopril 2.5mg tablet PO SCH (07:37)
[2019-11-11] MEDS: carVEDilol 3.125mg tablet PO SCH ×2 (07:37→20:08)
[2019-11-11] MEDS: pantoprazole 40mg Tablet.DR PO SCH (07:37)
[2019-11-11] MEDS: docusate sod 100mg capsule PO SCH ×2 (07:38→20:08)
[2019-11-11] MEDS: amiodarone 200mg tablet PO SCH ×3 (07:38→20:08)
[2019-11-11] MEDS: insulin Lispro (HumaLOG) vial - multi-dose SQ SCH ×3 (08:25→20:18)
[2019-11-11 13:35] LABS: CLARITY,URINE SLIGHTLY CLOUDY (Clear); COLOR,URINE YELLOW (Yellow); GLUCOSE, URINE 250 mg/dl (Neg); KETONES,URINE NEGATIVE (Neg); LEUKOCYTE ESTERASE ,URINE TRACE (Neg); NITRITES, URINE NEGATIVE (Neg); OCCULT BLOOD,URINE NEGATIVE (Neg); PH,URINE 7.5 (4.8-8.0); PROTEIN,URINE NEGATIVE (Neg); UROBILINOGEN,URINE >=8.0 E.U/dL (0.2-1.0)
[2019-11-11 13:36] LABS: UA COLLECTION TYPE CLN CATCH MIDSTREAM
[2019-11-11 13:51] LABS: MUCUS STRANDS FEW /LPF (Neg); SQUAMOUS EPITHELIAL CELL,UR MODERATE /LPF (FEW)
[2019-11-11 13:54] LABS: BACTERIA,URINE 1+ /HPF (Neg); RBC,URINE 0-2 /HPF (0-2)
[2019-11-11 13:56] LABS: TRICHOMONAS,URINE MOD /HPF (NEGATIVE); WBC CLUMPS,URINE FEW /HPF (NEGATIVE)
--- NOTE | 2019-11-11 18:20 | NUR ---
Patient in room CICU 2013. I have received report from garrick castillo and had the opportunity to ask questions and assume patient care.
[2019-11-11] MEDS: insulin glargine (Lantus) pen - multi-dose SQ SCH (20:19)
[2019-11-11] MEDS ORDERED: temazepam 15mg capsule PO PRN (20:40)
[2019-11-11] MEDS: HYDROcodone/acetaminophen 5mg/325mg tablet PO PRN (23:24)
[2019-11-11] MEDS ORDERED: VANCOMYCIN LEVEL IV ONE (23:30)
--- NOTE | 2019-11-11 23:55 | NUR ---
lab reported critical vanco trough. vanco drip was stopped and held due to critical lab results. md and pharmacy notified
[2019-11-12] VITALS (23 sets, daily range): BP systolic 98–134; BP diastolic 51–96
[2019-11-12] MEDS: amiodarone/D5 360MG/200ML BAG 200 ML IV SCH ×6 (04:38→23:29)
--- NOTE | 2019-11-12 04:55 | NUR ---
pt wrist and groin shaved, chg bath given, linens and gown changed, extension tubing connected in preparation for cardiac cath in AM. will continue to monitor
[2019-11-12 05:13] LABS: BASOPHILS # (AUTO) 0.1 X10'3 (0-0.2); BASOPHILS % (AUTO) 0.8 % (0-1); EOSINOPHILS % (AUTO) 0.3 % (0-6); HEMOGLOBIN 12.6 g/dl (14.0-17.9); LYMPHOCYTES # (AUTO) 3.2 X10'3 (1.1-4.8); LYMPHOCYTES % (AUTO) 19.1 % (21-51); MEAN CORPUSCULAR HEMOGLOBIN 30.8 PG (27.0-31.0); MEAN CORPUSCULAR HGB CONC 34.1 g/dL (33.0-36.5); MEAN CORPUSCULAR VOLUME 90.3 FL (78-98); MONOCYTES # (AUTO) 1.6 X10'3 (0-0.9); MONOCYTES % (AUTO) 9.6 % (2-12); NEUTROPHILS # (AUTO) 11.7 X10'3 (1.8-7.7); NEUTROPHILS % (AUTO) 70.2 % (42-75); PLATELET COUNT 432 X10'3 (140-440); RED CELL DISTRIBUTION WIDTH 13.5 % (11.5-14.5); WHITE BLOOD COUNT 16.7 X10'3 (4.5-11.0)
[2019-11-12 05:34] LABS: ALANINE AMINOTRANSFERASE 72 U/L (12-78); ALBUMIN 2.2 G/DL (3.4-5.0); ALBUMIN/GLOBULIN RATIO 0.6 (1.1-1.5); ALKALINE PHOSPHATASE 275 IU/L (46-116); ANION GAP 4 (8-16); ASPARTATE AMINO TRANSFERASE 24 U/L (10-37); BILIRUBIN,TOTAL 0.4 MG/DL (0.1-1.0); BLOOD UREA NITROGEN 9 MG/DL (7-18); BUN/CREATININE RATIO 9.2 (5.4-32.0); CALCIUM 8.5 MG/DL (8.5-10.1); CHLORIDE 101 MMOL/L (99-107); CREATININE 0.98 MG/DL (0.60-1.10); GLUCOSE 80 MG/DL (70-104); MAGNESIUM 1.8 MG/DL (1.5-2.4); PHOSPHORUS 4.7 MG/DL (2.3-4.5); SODIUM 136 MMOL/L (135-145); TOTAL CARBON DIOXIDE 30.7 MMOL/L (24-32); TOTAL PROTEIN 6.1 G/DL (6.4-8.2); eGFR 83 ML/MIN
--- NOTE | 2019-11-12 07:02 | NUR ---
Hep gtt off for cath
[2019-11-12 07:09] LABS: HBSAG SCREEN Negative (Negative); HEP A AB, IGM Negative (Negative); HEP B CORE AB, IGM Negative (Negative); HEPATITIS C ANTIBODY <0.1 s/co ratio (0.0-0.9)
[2019-11-12] MEDS: magnesium Cl slow-release 64mg tablet PO PRN (07:09)
[2019-11-12] MEDS: potassium Cl 20 mEq SR tablet PO PRN (07:09)
--- NOTE | 2019-11-12 07:26 | NUR ---
Spoke with clinical pharmacist. He said it's ok to give the 0800 Vanco. He will adjust dose for next administration.
[2019-11-12] MEDS ORDERED: VANCOMYCIN LEVEL IV ONE (07:30)
[2019-11-12] MEDS: VANCOmycin 1250MG/NS 250ml Bag 250 ML IV SCH (07:40)
[2019-11-12] MEDS: docusate sod 100mg capsule PO SCH ×2 (08:00→20:20)
[2019-11-12] MEDS: amiodarone 200mg tablet PO SCH ×3 (08:00→20:22)
[2019-11-12] MEDS ORDERED: fentaNYL/PF 50MCG/1 ML 2ML syringe ONE (08:29)
[2019-11-12] MEDS ORDERED: LIDOcaine 1% (10mg/ml)w/preservative injection 20ml MDV ONE (08:29)
[2019-11-12] MEDS ORDERED: midazolam 2 mg/2 ml injection ONE (08:29)
[2019-11-12] MEDS ORDERED: iohexol 350 MG/ML 50ML vial IV ONE (08:30)
[2019-11-12] MEDS ORDERED: iohexol 350MG/ML 100ml bottle IV ONE (08:30)
--- NOTE | 2019-11-12 08:50 | NUR ---
Pt to slab puller with slab puller staff
[2019-11-12 09:36] LABS: ISTAT HGB ART 11.6 g/dl (14.0-18.0); ISTAT Hct ART 34 %PCV (42-52); ISTAT O2 SATURATION ARTERIAL 95 % (95-98); ISTAT SOURCE ART
[2019-11-12 09:36] LABS: ISTAT Hct MIX 35 %PCV (42-52); ISTAT O2 SATURATION MIX VENOUS 67 % (60-80); ISTAT SOURCE MIX
[2019-11-12] MEDS ORDERED: proCHLORperazine 10 MG/2 ml inj IV PRN (10:30)
[2019-11-12] MEDS ORDERED: OXAZEpam 15mg capsule PO PRN (10:30)
[2019-11-12] MEDS ORDERED: normal saline 1000ml 1,000 ML IV ONE (10:35)
[2019-11-12] MEDS: atorvastatin 10mg tablet PO SCH (11:37)
[2019-11-12] MEDS: lisinopril 2.5mg tablet PO SCH (11:37)
[2019-11-12] MEDS: lactobacillus rhamnosus 10,000 MMU CELLS/CAPSULE PO SCH ×2 (11:37→20:20)
[2019-11-12] MEDS: carVEDilol 3.125mg tablet PO SCH ×2 (11:37→20:20)
[2019-11-12] MEDS: pantoprazole 40mg Tablet.DR PO SCH (11:37)
[2019-11-12] MEDS: HYDROcodone/acetaminophen 10/325mg tab PO PRN (12:50)
[2019-11-12] MEDS: insulin Lispro (HumaLOG) vial - multi-dose SQ SCH (13:48)
[2019-11-12] MEDS: vancomycin inj 1,000 MG in normal saline 250ml IV soln 250 ML IV SCH (15:59)
--- NOTE | 2019-11-12 17:18 | NUR ---
Reassessment: Appetite is fair, on average eating about 50% of meals and is s/p heart cath; some meals also held for procedures. Per MD note will continue with medical management for CAD, cardiomyopathy, LV thrombus, and systemic emboli. Last BM November 05, likely constipated. Constipation may be associated with lower PO intake from admission; has been receiving colace BID daily. Recommend to continue bowel care, may need additional in view of no BM for six days, d/w bedside RN. Rec: 1. continue carb controlled/renal diet 2. monitor for ONS needs 3. routine bowel care 4. need new scaled wt Addendum: 11/12/19 at [address] Amended: Links added.
[2019-11-12] MEDS: insulin glargine (Lantus) pen - multi-dose SQ SCH (20:25)
[2019-11-12] MEDS ORDERED: warfarin 1mg tablet PO ONE (21:00)
[2019-11-12] MEDS: HYDROcodone/acetaminophen 5mg/325mg tablet PO PRN (22:50)
[2019-11-13] VITALS (13 sets, daily range): BP systolic 102–130; BP diastolic 48–92
[2019-11-13] MEDS: vancomycin inj 1,000 MG in normal saline 250ml IV soln 250 ML IV SCH ×3 (00:38→17:11)
[2019-11-13 05:27] LABS: PARTIAL THROMBOPLASTIN TIME 35 SECONDS (22-32)
[2019-11-13 05:29] LABS: BASOPHILS # (AUTO) 0.1 X10'3 (0-0.2); BASOPHILS % (AUTO) 0.8 % (0-1); EOSINOPHILS # (AUTO) 0.1 X10'3 (0-0.9); HEMATOCRIT 35.4 % (42.0-52.0); LYMPHOCYTES # (AUTO) 3.1 X10'3 (1.1-4.8); LYMPHOCYTES % (AUTO) 21.4 % (21-51); MEAN CORPUSCULAR HEMOGLOBIN 30.5 PG (27.0-31.0); MEAN CORPUSCULAR HGB CONC 33.8 g/dL (33.0-36.5); MEAN CORPUSCULAR VOLUME 90.2 FL (78-98); MONOCYTES # (AUTO) 1.6 X10'3 (0-0.9); MONOCYTES % (AUTO) 10.8 % (2-12); NEUTROPHILS # (AUTO) 9.5 X10'3 (1.8-7.7); PLATELET COUNT 468 X10'3 (140-440); RED BLOOD COUNT 3.93 X10'6 (4.70-6.10); RED CELL DISTRIBUTION WIDTH 13.9 % (11.5-14.5); WHITE BLOOD COUNT 14.4 X10'3 (4.5-11.0)
[2019-11-13 05:49] LABS: ALANINE AMINOTRANSFERASE 49 U/L (12-78); ALBUMIN 2.1 G/DL (3.4-5.0); ALBUMIN/GLOBULIN RATIO 0.6 (1.1-1.5); ALKALINE PHOSPHATASE 207 IU/L (46-116); ANION GAP 5 (8-16); ASPARTATE AMINO TRANSFERASE 16 U/L (10-37); BILIRUBIN,TOTAL 0.2 MG/DL (0.1-1.0); BLOOD UREA NITROGEN 14 MG/DL (7-18); CALCIUM 8.4 MG/DL (8.5-10.1); CHLORIDE 100 MMOL/L (99-107); GLUCOSE 210 MG/DL (70-104); MAGNESIUM 1.9 MG/DL (1.5-2.4); PHOSPHORUS 3.7 MG/DL (2.3-4.5); POTASSIUM 4.4 MMOL/L (3.5-5.1); SODIUM 134 MMOL/L (135-145); TOTAL CARBON DIOXIDE 28.9 MMOL/L (24-32); TOTAL PROTEIN 5.8 G/DL (6.4-8.2); eGFR 82 ML/MIN
[2019-11-13] MEDS: amiodarone 200mg tablet PO SCH ×3 (07:44→20:47)
[2019-11-13] MEDS: lisinopril 2.5mg tablet PO SCH (07:44)
[2019-11-13] MEDS: lactobacillus rhamnosus 10,000 MMU CELLS/CAPSULE PO SCH ×2 (07:44→20:47)
[2019-11-13] MEDS: carVEDilol 3.125mg tablet PO SCH ×2 (07:44→20:47)
[2019-11-13] MEDS: atorvastatin 10mg tablet PO SCH (07:44)
[2019-11-13] MEDS: docusate sod 100mg capsule PO SCH ×2 (07:45→20:47)
[2019-11-13] MEDS: pantoprazole 40mg Tablet.DR PO SCH (07:45)
[2019-11-13] MEDS: potassium Cl 20 mEq SR tablet PO PRN (07:50)
--- NOTE | 2019-11-13 08:01 | NUR ---
Report called to PCU. Patient on ICU side being taken care of by break nurse at this time who will also transfer patient to [id number]
[2019-11-13] MEDS: insulin Lispro (HumaLOG) vial - multi-dose SQ SCH ×2 (08:22→19:15)
--- NOTE | 2019-11-13 09:08 | NUR ---
Pt brought to room via wheelchair. Pt amb to bed in stable condition. Pt assessed and RN concurs with [place]'s software applications developer. belongings at bedside. call light in reach.
[2019-11-13] MEDS: dextrose ORAL solution 15 GM/59 ML bottle PO PRN (12:07)
[2019-11-13] MEDS ORDERED: VANCOMYCIN LEVEL IV ONE (15:30)
--- NOTE | 2019-11-13 16:31 | NUR ---
Patient in room PCU 3027. I have received report from DONNIE Roman and had the opportunity to ask questions and assume patient care.
--- NOTE | 2019-11-13 18:43 | NUR ---
Problems reprioritized. Patient report given, questions answered & plan of care reviewed with DONNIE Louis.
[2019-11-13] MEDS: insulin glargine (Lantus) pen - multi-dose SQ SCH (21:00)
[2019-11-13] MEDS ORDERED: warfarin 3mg tablet PO ONE (21:00)
[2019-11-14] MEDS: vancomycin inj 1,000 MG in normal saline 250ml IV soln 250 ML IV SCH ×3 (00:33→16:58)
[2019-11-14 03:00] VITALS: BP 118/78
[2019-11-14] MEDS: HYDROcodone/acetaminophen 5mg/325mg tablet PO PRN (04:59)
[2019-11-14 05:20] LABS: PARTIAL THROMBOPLASTIN TIME 33 SECONDS (22-32)
[2019-11-14 05:28] LABS: ALANINE AMINOTRANSFERASE 39 U/L (12-78); ALBUMIN 2.3 G/DL (3.4-5.0); ALBUMIN/GLOBULIN RATIO 0.6 (1.1-1.5); ALKALINE PHOSPHATASE 173 IU/L (46-116); ANION GAP 7 (8-16); ASPARTATE AMINO TRANSFERASE 16 U/L (10-37); BILIRUBIN,TOTAL 0.3 MG/DL (0.1-1.0); BLOOD UREA NITROGEN 14 MG/DL (7-18); BUN/CREATININE RATIO 14.9 (5.4-32.0); CALCIUM 8.3 MG/DL (8.5-10.1); CHLORIDE 102 MMOL/L (99-107); CREATININE 0.94 MG/DL (0.60-1.10); GLUCOSE 170 MG/DL (70-104); MAGNESIUM 1.8 MG/DL (1.5-2.4); SODIUM 135 MMOL/L (135-145); TOTAL CARBON DIOXIDE 26.3 MMOL/L (24-32); TOTAL PROTEIN 5.9 G/DL (6.4-8.2); eGFR 88 ML/MIN
[2019-11-14 06:00] VITALS: BP 131/59
--- NOTE | 2019-11-14 06:29 | NUR ---
Patient in room PCU 3027. I have received report from DONNIE Louis and had the opportunity to ask questions and assume patient care.
[2019-11-14] MEDS: insulin Lispro (HumaLOG) vial - multi-dose SQ SCH ×3 (08:26→18:57)
[2019-11-14] MEDS: carVEDilol 3.125mg tablet PO SCH ×2 (08:28→20:08)
[2019-11-14] MEDS: lisinopril 2.5mg tablet PO SCH (08:29)
[2019-11-14] MEDS: amiodarone 200mg tablet PO SCH ×2 (08:29→20:07)
[2019-11-14] MEDS: pantoprazole 40mg Tablet.DR PO SCH (08:30)
[2019-11-14] MEDS: atorvastatin 10mg tablet PO SCH (08:30)
[2019-11-14] MEDS: docusate sod 100mg capsule PO SCH ×2 (08:30→20:05)
[2019-11-14] MEDS: lactobacillus rhamnosus 10,000 MMU CELLS/CAPSULE PO SCH ×2 (08:30→20:07)
[2019-11-14] MEDS: magnesium Cl slow-release 64mg tablet PO PRN (08:49)
[2019-11-14] MEDS: potassium Cl 20 mEq SR tablet PO PRN (08:50)
[2019-11-14 11:00] VITALS: BP 113/71
[2019-11-14 15:00] VITALS: BP 117/74
--- NOTE | 2019-11-14 15:09 | NUR ---
Reassessment: PO intake and appetite improving, was able to eat 75-100% of 5 meals. Prior PO about 50% average. Per MD note will continue with medical management for CAD, cardiomyopathy, LV thrombus, and systemic emboli. Last BM smear on 11/11 after receiving prn dulcolax; also receiving colace BID; likely still constipated. Constipation may be associated with lower PO intake from admission. Recommend to continue bowel care, may need additional in view of no significant BM for 8 days; d/w bedside RN. Visited patient at bedside, patient is requesting additional foods on trays, can send additional eggs and double meat on lunch and dinner; states he could eat his oatmeal with sugar added, discussed that sugar is no sent on carb controlled diet however can send splenda. Patient cannot recall his last "good" bowel movement. Is agreeable to prunes. Can send with dinner tonight and lunch tomorrow without overloading carbs or potassium, d/w dietary. Rec: 1. continue carb controlled/renal diet 2. double eggs, double meat with lunch/dinner 3. routine bowel care 4. need new scaled wt Addendum: 11/14/19 at [address] Amended: Links added.
[2019-11-14 18:00] VITALS: BP 129/89
--- NOTE | 2019-11-14 18:28 | NUR ---
Patient in room PCU 3027. I have received report from Nicole FIELDS and had the opportunity to ask questions and assume patient care.
--- NOTE | 2019-11-14 18:30 | NUR ---
Problems reprioritized. Patient report given, questions answered & plan of care reviewed with DONNIE Cabrera.
[2019-11-14] MEDS: HYDROcodone/acetaminophen 10/325mg tab PO PRN (19:31)
[2019-11-14] MEDS: enoxaparin 60mg/0.6ml syringe SUBCUT SCH (20:08)
[2019-11-14] MEDS: insulin glargine (Lantus) pen - multi-dose SQ SCH (20:50)
[2019-11-14] MEDS ORDERED: warfarin 5mg tablet PO ONE (21:00)
[2019-11-14 22:00] VITALS: BP 127/84
--- NOTE | 2019-11-14 22:55 | NUR ---
pt felt BG was low, no symptoms noted, BG checked result was 101, pt educated about low BG symptoms and medication regimen.
[2019-11-15] MEDS: vancomycin inj 1,000 MG in normal saline 250ml IV soln 250 ML IV SCH ×4 (00:19→23:08)
[2019-11-15 02:00] VITALS: BP 129/78
[2019-11-15 05:54] LABS: PARTIAL THROMBOPLASTIN TIME 35 SECONDS (22-32)
[2019-11-15 06:09] LABS: ALANINE AMINOTRANSFERASE 33 U/L (12-78); ALBUMIN 2.4 G/DL (3.4-5.0); ALBUMIN/GLOBULIN RATIO 0.6 (1.1-1.5); ALKALINE PHOSPHATASE 158 IU/L (46-116); ANION GAP 7 (8-16); ASPARTATE AMINO TRANSFERASE 14 U/L (10-37); BILIRUBIN,TOTAL 0.3 MG/DL (0.1-1.0); BLOOD UREA NITROGEN 18 MG/DL (7-18); BUN/CREATININE RATIO 18.8 (5.4-32.0); CALCIUM 8.6 MG/DL (8.5-10.1); CHLORIDE 102 MMOL/L (99-107); CREATININE 0.96 MG/DL (0.60-1.10); GLUCOSE 140 MG/DL (70-104); PHOSPHORUS 4.3 MG/DL (2.3-4.5); POTASSIUM 4.4 MMOL/L (3.5-5.1); SODIUM 136 MMOL/L (135-145); TOTAL CARBON DIOXIDE 27.3 MMOL/L (24-32); TOTAL PROTEIN 6.2 G/DL (6.4-8.2); eGFR 85 ML/MIN
[2019-11-15 06:30] VITALS: BP 143/61
--- NOTE | 2019-11-15 06:30 | NUR ---
Patient in room PCU 3027. I have received report from DONNIE Cabrera and had the opportunity to ask questions and assume patient care.
--- NOTE | 2019-11-15 06:36 | NUR ---
Problems reprioritized. Patient report given, questions answered & plan of care reviewed with Lisa RN.
[2019-11-15] MEDS: magnesium Cl slow-release 64mg tablet PO PRN ×2 (08:04→19:51)
[2019-11-15] MEDS: atorvastatin 10mg tablet PO SCH (08:05)
[2019-11-15] MEDS: carVEDilol 3.125mg tablet PO SCH ×2 (08:05→19:51)
[2019-11-15] MEDS: lactobacillus rhamnosus 10,000 MMU CELLS/CAPSULE PO SCH ×2 (08:05→19:50)
[2019-11-15] MEDS: potassium Cl 20 mEq SR tablet PO PRN (08:05)
[2019-11-15] MEDS: pantoprazole 40mg Tablet.DR PO SCH (08:05)
[2019-11-15] MEDS: amiodarone 200mg tablet PO SCH ×2 (08:06→19:51)
[2019-11-15] MEDS: enoxaparin 60mg/0.6ml syringe SUBCUT SCH ×2 (08:06→19:52)
[2019-11-15] MEDS: docusate sod 100mg capsule PO SCH ×2 (08:06→19:51)
[2019-11-15] MEDS: lisinopril 2.5mg tablet PO SCH (08:06)
[2019-11-15] MEDS: insulin Lispro (HumaLOG) vial - multi-dose SQ SCH ×3 (09:00→20:07)
[2019-11-15 11:00] VITALS: BP 111/74
[2019-11-15 15:00] VITALS: BP 103/62
[2019-11-15 18:00] VITALS: BP 100/63
--- NOTE | 2019-11-15 18:30 | NUR ---
Problems reprioritized. Patient report given, questions answered & plan of care reviewed with DONNIE Chaparro.
[2019-11-15] MEDS ORDERED: warfarin 7.5mg tablet PO ONE (21:00)
[2019-11-15] MEDS: insulin glargine (Lantus) pen - multi-dose SQ SCH (21:07)
[2019-11-15 22:00] VITALS: BP 107/66
[2019-11-15] MEDS: HYDROcodone/acetaminophen 10/325mg tab PO PRN (23:14)
[2019-11-16 02:00] VITALS: BP 107/67
--- NOTE | 2019-11-16 06:14 | NUR ---
Problems reprioritized. Patient report given, questions answered & plan of care reviewed with DONNIE Gonzalez.
--- NOTE | 2019-11-16 06:15 | NUR ---
Patient in room PCU 3027. I have received report from DONNIE Chaparro and had the opportunity to ask questions and assume patient care.
[2019-11-16 06:20] LABS: PARTIAL THROMBOPLASTIN TIME 37 SECONDS (22-32)
[2019-11-16 06:30] VITALS: BP 119/76
[2019-11-16 06:40] LABS: ALANINE AMINOTRANSFERASE 36 U/L (12-78); ALBUMIN 2.5 G/DL (3.4-5.0); ALBUMIN/GLOBULIN RATIO 0.6 (1.1-1.5); ALKALINE PHOSPHATASE 156 IU/L (46-116); ANION GAP 7 (8-16); ASPARTATE AMINO TRANSFERASE 19 U/L (10-37); BILIRUBIN,TOTAL 0.2 MG/DL (0.1-1.0); BLOOD UREA NITROGEN 21 MG/DL (7-18); BUN/CREATININE RATIO 23.1 (5.4-32.0); CALCIUM 8.5 MG/DL (8.5-10.1); CHLORIDE 101 MMOL/L (99-107); CREATININE 0.91 MG/DL (0.60-1.10); GLUCOSE 143 MG/DL (70-104); MAGNESIUM 2.1 MG/DL (1.5-2.4); PHOSPHORUS 4.1 MG/DL (2.3-4.5); POTASSIUM 4.3 MMOL/L (3.5-5.1); SODIUM 136 MMOL/L (135-145); TOTAL CARBON DIOXIDE 27.6 MMOL/L (24-32); TOTAL PROTEIN 6.5 G/DL (6.4-8.2); eGFR > 90 ML/MIN
[2019-11-16] MEDS: vancomycin inj 1,000 MG in normal saline 250ml IV soln 250 ML IV SCH (08:45)
[2019-11-16] MEDS: lactobacillus rhamnosus 10,000 MMU CELLS/CAPSULE PO SCH (08:45)
[2019-11-16] MEDS: carVEDilol 3.125mg tablet PO SCH (08:46)
[2019-11-16] MEDS: atorvastatin 10mg tablet PO SCH (08:46)
[2019-11-16] MEDS: amiodarone 200mg tablet PO SCH (08:46)
[2019-11-16] MEDS: potassium Cl 20 mEq SR tablet PO PRN (08:46)
[2019-11-16] MEDS: lisinopril 2.5mg tablet PO SCH (08:46)
[2019-11-16] MEDS: pantoprazole 40mg Tablet.DR PO SCH (08:46)
[2019-11-16] MEDS: enoxaparin 60mg/0.6ml syringe SUBCUT SCH (08:47)
[2019-11-16] MEDS: docusate sod 100mg capsule PO SCH (08:52)
[2019-11-16] MEDS: insulin Lispro (HumaLOG) vial - multi-dose SQ SCH (09:00)
[2019-11-16 11:00] VITALS: BP 105/66
[2019-11-16] MEDS ORDERED: LISI2.5T2 PO (11:48)
[2019-11-16] MEDS ORDERED: ATOR10TA PO (11:48)
[2019-11-16] MEDS ORDERED: PANT40TA4 PO (11:48)
[2019-11-16] MEDS ORDERED: COR3.125T PO (11:48)
--- NOTE | 2019-11-16 12:45 | NUR ---
[place] removed from BLE surgical incisions w/o complication. Applied benzoin tincture then steri strips. Pt waldemar well.
[2019-11-16] MEDS ORDERED: AMIO200T61 PO (13:21)
--- NOTE | 2019-11-16 13:50 | NUR ---
DC inst provided to pt. IV DC'd, tip intact. All belongings sent w/pt. WC to front lobby.
[2019-11-16] MEDS ORDERED: COU5T PO (15:41)
[2019-11-16] MEDS ORDERED: COU1T PO ×3 (15:41→15:44)
== END 2019-11-16 13:48 | disposition home or self-care (01) | DRG 181 ==
LOC: ER 09:49 → CICU 2S 14:52 → UNDOADMIN 15:39 → ORTHO 4S 11-07 16:55 → PCU 3S 11-07 23:00 → CICU 2S 11-08 03:20 → ICU 2S 11-13 07:12 → PCU 3S 11-13 08:44
PROVIDERS: ADMIT Internal Medicine Critical Care Medicine; ATTEND Internal Medicine Critical Care Medicine
PROC: 04CM0ZZ Extirpation of Matter from Right Popliteal Artery, Open Approach (ICD-10-PCS; 2019-11-05)
PROC: 04CN0ZZ Extirpation of Matter from Left Popliteal Artery, Open Approach (ICD-10-PCS; principal; 2019-11-05 15:00)
PROC: 5A12012 Performance of Cardiac Output, Single, Manual (ICD-10-PCS; 2019-11-08)
PROC: B41F1ZZ Fluoroscopy of Right Lower Extremity Arteries using Low Osmolar Contrast (ICD-10-PCS; 2019-11-12)
PROC: 4A023N8 Measurement of Cardiac Sampling and Pressure, Bilateral, Percutaneous Approach (ICD-10-PCS; 2019-11-12)
PROC: B2151ZZ Fluoroscopy of Left Heart using Low Osmolar Contrast (ICD-10-PCS; 2019-11-12)
PROC: B2111ZZ Fluoroscopy of Multiple Coronary Arteries using Low Osmolar Contrast (ICD-10-PCS; 2019-11-12)
DX: I51.3 Intracardiac thrombosis, not elsewhere classified (principal); I47.2 Ventricular tachycardia; I74.3 Embolism and thrombosis of arteries of the lower extremities; N17.9 Acute kidney failure, unspecified; I46.9 Cardiac arrest, cause unspecified; I42.8 Other cardiomyopathies; E11.65 Type 2 diabetes mellitus with hyperglycemia; E87.1 Hypo-osmolality and hyponatremia; D72.829 Elevated white blood cell count, unspecified; F15.10 Other stimulant abuse, uncomplicated; E11.52 Type 2 diabetes mellitus with diabetic peripheral angiopathy with gangrene; F17.210 Nicotine dependence, cigarettes, uncomplicated; I25.10 Atherosclerotic heart disease of native coronary artery without angina pectoris; I48.91 Unspecified atrial fibrillation; I50.9 Heart failure, unspecified; Z59.0 Homelessness; Z79.01 Long term (current) use of anticoagulants; Z90.411 Acquired partial absence of pancreas
CPT/HCPCS: 36160; 36415; 70450; 70496; 70498; 71045; 75630; 75635; 76937; 80053; 80074; 80162; 80202; 80305; 81001; 82803; 82948; 83036; 83605; 83735; 84100; 84132; 84145; 84443; 84484; 85014; 85025; 85610; 85730; 86703; 86885; 86900; 86901; 87040; 87070; 87075; 87077; 87081; 87088; 87102; 87186; 92950; 93005; 93306; 93308; 93460; 94760; 97110; 97116; 97161; 97530; 99152; 99153; 99291; A4618; A4620; A6213; A6258; A7000; C1751; C1757; C1758; C1760; C1769; C1894; G0378; J0690; J1100; J1644; J1650; J1815; J2001; J2250; J2270; J2370; J2405; J2704; J2710; J2997; J3010; J3370; J3475; J3490; J7030; J7040; J7050; J7120; Q9967

== ENCOUNTER 2019-11-26 12:33 | Inpatient (IN) | payer MEDICAID ==
[~2019-11-26] VITALS: Ht 185.4 cm; Wt 71.5 kg
[~2019-11-26 12:33] MED LIST changes: +AMIO200T61 PO; +ATOR10TA PO; +COR3.125T PO; +COU1T PO; +COU5T PO; +LISI2.5T2 PO; +PANT40TA4 PO; -amiodarone 50MG/ML inj IV ONE; -sod chloride 0.9% 10ml flush syringe IV ONE
[2019-11-26] MEDS ORDERED: morphine 4 MG/ML inj SYRINge IV PRN ×2 (13:35→20:50)
[2019-11-26] MEDS ORDERED: ondansetron/PF 4mg/2ml inj IV ONE (13:35)
[2019-11-26] MEDS ORDERED: normal saline 1000ML IV soln IVB ONE (13:35)
[2019-11-26 14:04] LABS: BASOPHILS # (AUTO) 0.2 X10'3 (0-0.2); EOSINOPHILS # (AUTO) 0.4 X10'3 (0-0.9); EOSINOPHILS % (AUTO) 3.6 % (0-6); LYMPHOCYTES % (AUTO) 27.3 % (21-51); MEAN CORPUSCULAR HGB CONC 33.3 g/dL (33.0-36.5)
[2019-11-26 14:06] LABS: BASOPHILS % (AUTO) 1.7 % (0-1); HEMATOCRIT 36.5 % (42.0-52.0); HEMOGLOBIN 12.2 g/dl (14.0-17.9); MEAN PLATELET VOLUME 7.3 FL (7.4-10.4); MONOCYTES % (AUTO) 9.1 % (2-12); NEUTROPHILS # (AUTO) 6.5 X10'3 (1.8-7.7); NEUTROPHILS % (AUTO) 58.3 % (42-75); PLATELET COUNT 825 X10'3 (140-440); RED BLOOD COUNT 4.05 X10'6 (4.70-6.10); RED CELL DISTRIBUTION WIDTH 14.1 % (11.5-14.5); WHITE BLOOD COUNT 11.2 X10'3 (4.5-11.0)
[2019-11-26 14:28] LABS: ALANINE AMINOTRANSFERASE 43 U/L (12-78); ALBUMIN 3.3 G/DL (3.4-5.0); ALBUMIN/GLOBULIN RATIO 0.8 (1.1-1.5); ALKALINE PHOSPHATASE 173 IU/L (46-116); ANION GAP 9 (8-16); BILIRUBIN,TOTAL 0.2 MG/DL (0.1-1.0); BLOOD UREA NITROGEN 21 MG/DL (7-18); BUN/CREATININE RATIO 25.6 (5.4-32.0); CALCIUM 9.1 MG/DL (8.5-10.1); CHLORIDE 102 MMOL/L (99-107); CREATININE 0.82 MG/DL (0.60-1.10); GLUCOSE 186 MG/DL (70-104); SODIUM 138 MMOL/L (135-145); TOTAL CARBON DIOXIDE 26.7 MMOL/L (24-32); TOTAL PROTEIN 7.5 G/DL (6.4-8.2); eGFR > 90 ML/MIN
[2019-11-26 14:31] LABS: ASPARTATE AMINO TRANSFERASE 26 U/L (10-37); POTASSIUM 4.5 MMOL/L (3.5-5.1); TROPONIN I < 0.04 NG/ML (0.0-0.05)
[2019-11-26] MEDS ORDERED: heparin 10,000 units/1 ML INJ IV ONE ×2 (14:50→14:55)
[2019-11-26 14:55] LABS: PLATELET ESTIMATE INCREASED
[2019-11-26 14:56] LABS: POIKILOCYTOSIS 1+
[2019-11-26 14:58] LABS: ACANTHOCYTES 1+; BURR CELLS 1+
[2019-11-26] MEDS: heparin 25,000 UNIT/250ml bag 250 ML IV SCH (15:05)
[2019-11-26] MEDS ORDERED: iohexol 350MG/ML 100ml bottle IV ONE (15:10)
[2019-11-26] MEDS ORDERED: iohexol 350 MG/ML 50ML vial IV ONE (15:11)
[2019-11-26 15:14] LABS: EOSINOPHILS # (AUTO) 0.4 X10'3 (0-0.9); NEUTROPHILS # (AUTO) 6.4 X10'3 (1.8-7.7); WHITE BLOOD COUNT 11.1 X10'3 (4.5-11.0)
[2019-11-26 15:15] LABS: BASOPHILS # (AUTO) 0.2 X10'3 (0-0.2); BASOPHILS % (AUTO) 2.1 % (0-1); EOSINOPHILS % (AUTO) 3.7 % (0-6); HEMATOCRIT 34.4 % (42.0-52.0); HEMOGLOBIN 11.6 g/dl (14.0-17.9); LYMPHOCYTES % (AUTO) 27.4 % (21-51); MEAN CORPUSCULAR HEMOGLOBIN 30.4 PG (27.0-31.0); MEAN CORPUSCULAR HGB CONC 33.8 g/dL (33.0-36.5); MEAN CORPUSCULAR VOLUME 89.9 FL (78-98); MEAN PLATELET VOLUME 7.2 FL (7.4-10.4); MONOCYTES % (AUTO) 9.2 % (2-12); NEUTROPHILS % (AUTO) 57.6 % (42-75); PLATELET COUNT 783 X10'3 (140-440); RED BLOOD COUNT 3.83 X10'6 (4.70-6.10); RED CELL DISTRIBUTION WIDTH 13.9 % (11.5-14.5)
[2019-11-26 16:07] LABS: CLARITY,URINE CLEAR (Clear); COLOR,URINE YELLOW (Yellow); GLUCOSE, URINE >=1000 mg/dl (Neg); KETONES,URINE NEGATIVE (Neg); LEUKOCYTE ESTERASE ,URINE NEGATIVE (Neg); NITRITES, URINE NEGATIVE (Neg); OCCULT BLOOD,URINE NEGATIVE (Neg); PROTEIN,URINE NEGATIVE (Neg); UROBILINOGEN,URINE 0.2 E.U/dL (0.2-1.0)
[2019-11-26 16:09] LABS: UA COLLECTION TYPE URINAL
[2019-11-26 16:12] LABS: URINE AMPHETAMINE SCREEN NEGATIVE (Neg); URINE BARBITUATE SCREEN NEGATIVE (Neg); URINE BENZODIAZEPINES SCREEN NEGATIVE (Neg); URINE CANNABINOID SCREEN POSITIVE (Neg); URINE COCAINE SCREEN NEGATIVE (Neg); URINE METHADONE SCREEN NEGATIVE (Neg); URINE OPIATE SCREEN POSITIVE (Neg); URINE PHENCYCLIDINE SCREEN NEGATIVE (Neg); WBC,URINE 20-30 /HPF (0-4)
[2019-11-26 16:13] LABS: RBC,URINE NONE SEEN /HPF (0-2)
[2019-11-26 16:14] LABS: BACTERIA,URINE NONE SEEN /HPF (Neg); MUCUS STRANDS NONE SEEN /LPF (Neg); SQUAMOUS EPITHELIAL CELL,UR FEW /LPF (FEW); TRANSITIONAL EPI CELLS,URINE FEW /HPF; WBC CLUMPS,URINE FEW /HPF (NEGATIVE)
[2019-11-26] MEDS ORDERED: PANT40TA4 PO (16:24)
[2019-11-26] MEDS ORDERED: ATOR10TA10 PO (16:24)
[2019-11-26] MEDS ORDERED: LISI2.5T2 PO (16:24)
[2019-11-26] MEDS ORDERED: CARV3.122 PO (16:24)
[2019-11-26] MEDS ORDERED: AMIO200T61 PO (16:24)
[2019-11-26] MEDS ORDERED: WARF5TAB PO (16:24)
[2019-11-26] MEDS ORDERED: WARF1TAB PO (16:24)
[2019-11-26] MEDS ORDERED: INSU100I31 SQ (16:25)
--- NOTE | 2019-11-26 19:56 | NUR ---
call placed to Colton Carrion for possible admission orders. Pt was seen earlier by MD Veliz but no admission order was written. Per MD Zhu in ER he is under the impression that the pt is to be admitted to the ICU
[2019-11-26] MEDS ORDERED: acetaminophen 325mg tablet PO PRN ×2 (20:50)
[2019-11-26] MEDS ORDERED: potassium Cl 20 mEq SR tablet PO PRN ×2 (20:50)
[2019-11-26] MEDS ORDERED: magnesium hydroxide 30ml (MOM) UD suspension PO PRN (20:50)
[2019-11-26] MEDS ORDERED: morphine 2 MG/ML inj. syringe IV PRN (20:50)
[2019-11-26] MEDS ORDERED: potassium CL 10mEq/100ml bag 100 ML IV PRN ×2 (20:50)
[2019-11-26] MEDS ORDERED: ondansetron/PF 4mg/2ml inj IV PRN (20:50)
[2019-11-26] MEDS: K, MAG and/or Phos replacement - Verify level? MC SCH (21:34)
--- NOTE | 2019-11-26 22:25 | NUR ---
Patient in room CICU 2007. I have received report from PATCH SANDER and had the opportunity to ask questions and assume patient care. Pt ambulated to bed from [facility], Heparin drip running at 800units/hr. Pt C/O numbness, tingling and pain ankles down, both lower extremities. No open wounds noted. Bilateral calf incisions from previous procedure are healing well, [place] out, open to air. Several dark spots noted on toes of both feet, pt says they are not new. Pulses by Doppler, feet are normal color and temperature.
[2019-11-26 22:45] VITALS: BP 121/84
[2019-11-26 23:00] VITALS: BP 123/86
[2019-11-27] VITALS (17 sets, daily range): BP systolic 105–133; BP diastolic 69–98
[2019-11-27] MEDS ORDERED: dextrose 50%-water 50ml dispensing syringe IV PRN ×2 (00:25)
[2019-11-27] MEDS ORDERED: MESSAGE TO PHARMACY PO ONE (00:25)
[2019-11-27] MEDS ORDERED: dextrose ORAL solution 15 GM/59 ML bottle PO PRN ×2 (00:25)
[2019-11-27] MEDS ORDERED: glucagon, human recombinant 1mg kit SUBCUT PRN (00:25)
[2019-11-27 03:31] LABS: EOSINOPHILS # (AUTO) 0.5 X10'3 (0-0.9); MEAN PLATELET VOLUME 7.6 FL (7.4-10.4); NEUTROPHILS # (AUTO) 6.4 X10'3 (1.8-7.7)
[2019-11-27 03:33] LABS: BASOPHILS # (AUTO) 0.3 X10'3 (0-0.2); BASOPHILS % (AUTO) 2.7 % (0-1); HEMOGLOBIN 11.2 g/dl (14.0-17.9); LYMPHOCYTES # (AUTO) 3.7 X10'3 (1.1-4.8); LYMPHOCYTES % (AUTO) 31.5 % (21-51); MEAN CORPUSCULAR HEMOGLOBIN 30.8 PG (27.0-31.0); MEAN CORPUSCULAR HGB CONC 33.9 g/dL (33.0-36.5); MEAN CORPUSCULAR VOLUME 90.9 FL (78-98); MONOCYTES # (AUTO) 0.8 X10'3 (0-0.9); NEUTROPHILS % (AUTO) 54.8 % (42-75); PLATELET COUNT 721 X10'3 (140-440); RED BLOOD COUNT 3.63 X10'6 (4.70-6.10); RED CELL DISTRIBUTION WIDTH 14.3 % (11.5-14.5); WHITE BLOOD COUNT 11.7 X10'3 (4.5-11.0)
[2019-11-27 03:44] LABS: ALANINE AMINOTRANSFERASE 35 U/L (12-78); ALBUMIN 2.8 G/DL (3.4-5.0); ALBUMIN/GLOBULIN RATIO 0.8 (1.1-1.5); ALKALINE PHOSPHATASE 134 IU/L (46-116); ANION GAP 5 (8-16); ASPARTATE AMINO TRANSFERASE 18 U/L (10-37); BILIRUBIN,TOTAL 0.3 MG/DL (0.1-1.0); BLOOD UREA NITROGEN 15 MG/DL (7-18); CALCIUM 8.4 MG/DL (8.5-10.1); CHLORIDE 106 MMOL/L (99-107); CREATININE 0.79 MG/DL (0.60-1.10); GLUCOSE 173 MG/DL (70-104); MAGNESIUM 1.8 MG/DL (1.5-2.4); PHOSPHORUS 4.2 MG/DL (2.3-4.5); SODIUM 138 MMOL/L (135-145); TOTAL CARBON DIOXIDE 27.2 MMOL/L (24-32); TOTAL PROTEIN 6.3 G/DL (6.4-8.2); eGFR > 90 ML/MIN
[2019-11-27 04:16] LABS: MEGAKARYOCYTE FRAGMENTS RARE; PLATELET ESTIMATE INCREASED
--- NOTE | 2019-11-27 06:15 | NUR ---
Problems reprioritized. Patient report given, questions answered & plan of care reviewed with Adán FIELDS.
[2019-11-27] MEDS: K, MAG and/or Phos replacement - Verify level? MC SCH (08:00)
[2019-11-27] MEDS: pantoprazole 40mg Tablet.DR PO SCH (08:32)
[2019-11-27] MEDS: insulin Lispro (HumaLOG) vial - multi-dose SQ SCH ×2 (08:50→13:01)
[2019-11-27] MEDS: atorvastatin 10mg tablet PO SCH (10:59)
--- NOTE | 2019-11-27 11:13 | NUR ---
DM Consult: A1C 11.6. Pt seen by BRIDGETTE 2 weeks ago prior admit for written/verbal DM ed w/ RD contact information provided at that time. PT admit w/ bilateral popliteal emboli placed on heart healthy/carb controlled diet this admit. Addendum: 11/27/19 at [address] Amended: Links added.
--- NOTE | 2019-11-27 12:55 | NUR ---
RECEIVED REPORT FROM DONNIE GALINDO
--- NOTE | 2019-11-27 12:55 | NUR ---
Problems reprioritized. Patient report given, questions answered & plan of care reviewed with Елена FIELDS.
--- NOTE | 2019-11-27 14:03 | NUR ---
PATIENT ARRIVED ON FLOOR AWAKE AND IN WHEELCHAIR
--- NOTE | 2019-11-27 16:07 | NUR ---
ptt is 46 which is therapeutic, No change in heparin drip at this time. Continue to monitor.
--- NOTE | 2019-11-27 16:13 | NUR ---
Spoke with RN regarding patients meals and increasing satiety, discussed adding double eggs with breakfast and double meat with lunch and dinner, d/w dietary. Addendum: 11/27/19 at [address] Amended: Links added.
--- NOTE | 2019-11-27 18:13 | NUR ---
GAVE REPORT TO DONNIE MALDONADO
--- NOTE | 2019-11-27 18:30 | NUR ---
Patient in room PCU 3026. I have received report from Елена FIELDS and had the opportunity to ask questions and assume patient care.
[2019-11-27] MEDS: carVEDilol 3.125mg tablet PO SCH (20:26)
[2019-11-27] MEDS: insulin glargine (Lantus) pen - multi-dose SQ SCH (21:00)
--- NOTE | 2019-11-27 22:05 | NUR ---
pt cardiac PTT 46, therapeutic, will continue to run heparin GTT at 800 and monitor pt closely
[2019-11-28] MEDS: heparin 25,000 UNIT/250ml bag 250 ML IV SCH ×2 (00:29→13:35)
--- NOTE | 2019-11-28 00:32 | NUR ---
PAGER ID: [phone] MESSAGE: Nish Armstrong 43M admitetd with Lower extremity ischemia and ventriocular thrombus is having trouble falling asleep and would like something to help please? Thank you Allyssa FIELDS [phone]
[2019-11-28] MEDS ORDERED: diphenhydrAMINE 25mg capsule PO PRN (01:35)
[2019-11-28] MEDS: Melatonin 3mg tablet PO SCH ×2 (01:35→21:25)
[2019-11-28] MEDS ORDERED: temazepam 15mg capsule PO ONE (01:50)
[2019-11-28 02:00] VITALS: BP 120/75
[2019-11-28 05:35] VITALS: BP 120/75
[2019-11-28 06:05] LABS: BASOPHILS # (AUTO) 0.1 X10'3 (0-0.2); EOSINOPHILS # (AUTO) 0.4 X10'3 (0-0.9); LYMPHOCYTES # (AUTO) 2.7 X10'3 (1.1-4.8)
[2019-11-28 06:08] LABS: BASOPHILS % (AUTO) 0.8 % (0-1); EOSINOPHILS % (AUTO) 3.4 % (0-6); HEMATOCRIT 34.2 % (42.0-52.0); HEMOGLOBIN 11.6 g/dl (14.0-17.9); LYMPHOCYTES % (AUTO) 24.6 % (21-51); MEAN CORPUSCULAR HEMOGLOBIN 30.7 PG (27.0-31.0); MEAN CORPUSCULAR HGB CONC 33.8 g/dL (33.0-36.5); MEAN CORPUSCULAR VOLUME 90.7 FL (78-98); MEAN PLATELET VOLUME 7.6 FL (7.4-10.4); MONOCYTES % (AUTO) 9.6 % (2-12); NEUTROPHILS # (AUTO) 6.7 X10'3 (1.8-7.7); NEUTROPHILS % (AUTO) 61.6 % (42-75); PLATELET COUNT 738 X10'3 (140-440); RED BLOOD COUNT 3.77 X10'6 (4.70-6.10); RED CELL DISTRIBUTION WIDTH 14.3 % (11.5-14.5); WHITE BLOOD COUNT 10.8 X10'3 (4.5-11.0)
--- NOTE | 2019-11-28 06:15 | NUR ---
Patient in room PCU 3026. I have received report from DONNIE Spivey and had the opportunity to ask questions and assume patient care.
[2019-11-28 06:30] LABS: ALANINE AMINOTRANSFERASE 27 U/L (12-78); ALBUMIN 3.1 G/DL (3.4-5.0); ALBUMIN/GLOBULIN RATIO 0.8 (1.1-1.5); ALKALINE PHOSPHATASE 127 IU/L (46-116); ANION GAP 5 (8-16); ASPARTATE AMINO TRANSFERASE 15 U/L (10-37); BILIRUBIN,TOTAL 0.3 MG/DL (0.1-1.0); BLOOD UREA NITROGEN 22 MG/DL (7-18); CHLORIDE 104 MMOL/L (99-107); GLUCOSE 158 MG/DL (70-104); PHOSPHORUS 4.6 MG/DL (2.3-4.5); POTASSIUM 4.5 MMOL/L (3.5-5.1); SODIUM 139 MMOL/L (135-145); TOTAL CARBON DIOXIDE 29.9 MMOL/L (24-32); TOTAL PROTEIN 6.8 G/DL (6.4-8.2); eGFR 82 ML/MIN
[2019-11-28] MEDS: lisinopril 2.5mg tablet PO SCH (07:37)
[2019-11-28] MEDS: carVEDilol 3.125mg tablet PO SCH ×2 (07:38→19:10)
[2019-11-28] MEDS: atorvastatin 10mg tablet PO SCH (07:39)
[2019-11-28] MEDS: pantoprazole 40mg Tablet.DR PO SCH (07:39)
[2019-11-28] MEDS: amiodarone 100mg tablet PO SCH (08:00)
[2019-11-28] MEDS ORDERED: insulin glargine (Lantus) pen - multi-dose SQ SCH (08:00)
[2019-11-28] MEDS ORDERED: pantoprazole 40mg Tablet.DR PO SCH (08:00)
[2019-11-28] MEDS: K, MAG and/or Phos replacement - Verify level? MC SCH (08:00)
[2019-11-28] MEDS ORDERED: amiodarone 200mg tablet PO SCH (08:00)
[2019-11-28] MEDS: insulin Lispro (HumaLOG) vial - multi-dose SQ SCH ×3 (08:55→19:12)
[2019-11-28 11:00] VITALS: BP 95/56
[2019-11-28] MEDS: heparin 10,000 units/1 ML INJ IV PRN (13:32)
[2019-11-28 17:00] VITALS: BP 105/65
[2019-11-28 18:00] VITALS: BP 114/75
--- NOTE | 2019-11-28 18:19 | NUR ---
Problems reprioritized. Patient report given, questions answered & plan of care reviewed with DONNIE Spivey.
--- NOTE | 2019-11-28 18:27 | NUR ---
Patient in room PCU 3026. I have received report from Swetha FIELDS and had the opportunity to ask questions and assume patient care.
--- NOTE | 2019-11-28 21:05 | NUR ---
pt PTT is 46, therapeutic, will continue to run heparin GTT at the same rate, will continue to monitor pt closely
[2019-11-28] MEDS: warfarin 3mg tablet PO SCH (21:26)
[2019-11-28] MEDS: insulin glargine (Lantus) pen - multi-dose SQ SCH (21:28)
[2019-11-28 22:00] VITALS: BP 118/56
[2019-11-29 02:00] VITALS: BP 96/63
[2019-11-29] MEDS: heparin 25,000 UNIT/250ml bag 250 ML IV SCH ×3 (03:40→23:27)
[2019-11-29 04:07] LABS: EOSINOPHILS # (AUTO) 0.3 X10'3 (0-0.9); HEMOGLOBIN 12.3 g/dl (14.0-17.9); MEAN PLATELET VOLUME 7.8 FL (7.4-10.4); RED CELL DISTRIBUTION WIDTH 14.5 % (11.5-14.5); WHITE BLOOD COUNT 10.9 X10'3 (4.5-11.0)
[2019-11-29 04:09] LABS: BASOPHILS % (AUTO) 0.3 % (0-1); HEMATOCRIT 36.9 % (42.0-52.0); LYMPHOCYTES # (AUTO) 3.2 X10'3 (1.1-4.8); LYMPHOCYTES % (AUTO) 29.1 % (21-51); MEAN CORPUSCULAR HEMOGLOBIN 30.2 PG (27.0-31.0); MEAN CORPUSCULAR HGB CONC 33.3 g/dL (33.0-36.5); MEAN CORPUSCULAR VOLUME 90.7 FL (78-98); MONOCYTES # (AUTO) 0.9 X10'3 (0-0.9); NEUTROPHILS # (AUTO) 6.5 X10'3 (1.8-7.7); NEUTROPHILS % (AUTO) 59.6 % (42-75); PLATELET COUNT 677 X10'3 (140-440); RED BLOOD COUNT 4.07 X10'6 (4.70-6.10)
[2019-11-29 04:17] LABS: ALANINE AMINOTRANSFERASE 31 U/L (12-78); ALBUMIN 3.2 G/DL (3.4-5.0); ALBUMIN/GLOBULIN RATIO 0.8 (1.1-1.5); ALKALINE PHOSPHATASE 130 IU/L (46-116); ANION GAP 8 (8-16); ASPARTATE AMINO TRANSFERASE 17 U/L (10-37); BILIRUBIN,TOTAL 0.3 MG/DL (0.1-1.0); BLOOD UREA NITROGEN 25 MG/DL (7-18); BUN/CREATININE RATIO 26.3 (5.4-32.0); CALCIUM 8.9 MG/DL (8.5-10.1); CHLORIDE 104 MMOL/L (99-107); CREATININE 0.95 MG/DL (0.60-1.10); GLUCOSE 171 MG/DL (70-104); MAGNESIUM 1.9 MG/DL (1.5-2.4); PHOSPHORUS 4.6 MG/DL (2.3-4.5); SODIUM 137 MMOL/L (135-145); TOTAL CARBON DIOXIDE 25.4 MMOL/L (24-32); TOTAL PROTEIN 7.1 G/DL (6.4-8.2); eGFR 87 ML/MIN
[2019-11-29] MEDS: heparin 10,000 units/1 ML INJ IV PRN ×2 (04:41→20:05)
--- NOTE | 2019-11-29 04:48 | NUR ---
pt PTT 37, heparin GTT increased to 1200 units/hr will continue to monitor pt closely
[2019-11-29 06:00] VITALS: BP 113/70
--- NOTE | 2019-11-29 06:24 | NUR ---
Problems reprioritized. Patient report given, questions answered & plan of care reviewed with Magui FIELDS.
--- NOTE | 2019-11-29 06:26 | NUR ---
Patient in room PCU 3026. I have received report from DONNIE Spivey and had the opportunity to ask questions and assume patient care. Patient currently resting in bed, bed locked and low, call light in reach, no acute distress, will continue to monitor.
[2019-11-29] MEDS: insulin Lispro (HumaLOG) vial - multi-dose SQ SCH ×2 (07:57→13:39)
[2019-11-29] MEDS: pantoprazole 40mg Tablet.DR PO SCH (07:58)
[2019-11-29] MEDS: carVEDilol 3.125mg tablet PO SCH ×2 (07:58→19:56)
[2019-11-29] MEDS: atorvastatin 10mg tablet PO SCH (07:58)
[2019-11-29] MEDS: amiodarone 100mg tablet PO SCH (07:58)
[2019-11-29] MEDS: K, MAG and/or Phos replacement - Verify level? MC SCH (08:00)
[2019-11-29] MEDS: lisinopril 2.5mg tablet PO SCH (08:00)
[2019-11-29 11:00] VITALS: BP 128/71
[2019-11-29 15:00] VITALS: BP 96/67
--- NOTE | 2019-11-29 16:44 | NUR ---
Patient in room PCU 3026. I have received report from Magui and had the opportunity to ask questions and assume patient care.
[2019-11-29 18:00] VITALS: BP 110/70
--- NOTE | 2019-11-29 18:33 | NUR ---
Problems reprioritized. Patient report given, questions answered & plan of care reviewed with Rona.
--- NOTE | 2019-11-29 18:41 | NUR ---
Patient in room PCU 3026. I have received report from Kenroy FIELDS and had the opportunity to ask questions and assume patient care.
[2019-11-29] MEDS ORDERED: temazepam 15mg capsule PO PRN (21:00)
[2019-11-29] MEDS: warfarin 3mg tablet PO SCH (21:30)
[2019-11-29] MEDS: Melatonin 3mg tablet PO SCH (21:30)
[2019-11-29 22:00] VITALS: BP 114/77
[2019-11-29] MEDS: insulin glargine (Lantus) pen - multi-dose SQ SCH (22:24)
[2019-11-30] VITALS (9 sets, daily range): BP systolic 86–106; BP diastolic 55–69
[2019-11-30 03:41] LABS: BASOPHILS # (AUTO) 0.1 X10'3 (0-0.2); EOSINOPHILS # (AUTO) 0.4 X10'3 (0-0.9); MEAN CORPUSCULAR HGB CONC 33.9 g/dL (33.0-36.5); MEAN PLATELET VOLUME 7.8 FL (7.4-10.4); RED CELL DISTRIBUTION WIDTH 14.2 % (11.5-14.5)
[2019-11-30 03:42] LABS: BASOPHILS % (AUTO) 1.3 % (0-1); HEMATOCRIT 34.3 % (42.0-52.0); HEMOGLOBIN 11.7 g/dl (14.0-17.9); LYMPHOCYTES # (AUTO) 3.6 X10'3 (1.1-4.8); LYMPHOCYTES % (AUTO) 32.9 % (21-51); MEAN CORPUSCULAR HEMOGLOBIN 30.4 PG (27.0-31.0); MEAN CORPUSCULAR VOLUME 89.6 FL (78-98); MONOCYTES % (AUTO) 9.1 % (2-12); NEUTROPHILS # (AUTO) 5.7 X10'3 (1.8-7.7); NEUTROPHILS % (AUTO) 52.7 % (42-75); PLATELET COUNT 685 X10'3 (140-440); RED BLOOD COUNT 3.83 X10'6 (4.70-6.10); WHITE BLOOD COUNT 10.9 X10'3 (4.5-11.0)
[2019-11-30 03:52] LABS: ALANINE AMINOTRANSFERASE 26 U/L (12-78); ALBUMIN 3.2 G/DL (3.4-5.0); ALBUMIN/GLOBULIN RATIO 0.9 (1.1-1.5); ALKALINE PHOSPHATASE 115 IU/L (46-116); ANION GAP 9 (8-16); ASPARTATE AMINO TRANSFERASE 18 U/L (10-37); BILIRUBIN,TOTAL 0.2 MG/DL (0.1-1.0); BLOOD UREA NITROGEN 26 MG/DL (7-18); BUN/CREATININE RATIO 28.9 (5.4-32.0); CALCIUM 8.6 MG/DL (8.5-10.1); CHLORIDE 103 MMOL/L (99-107); GLUCOSE 146 MG/DL (70-104); PHOSPHORUS 4.7 MG/DL (2.3-4.5); POTASSIUM 3.9 MMOL/L (3.5-5.1); SODIUM 138 MMOL/L (135-145); TOTAL CARBON DIOXIDE 26.5 MMOL/L (24-32); TOTAL PROTEIN 6.8 G/DL (6.4-8.2); eGFR > 90 ML/MIN
--- NOTE | 2019-11-30 06:19 | NUR ---
Patient in room PCU 3026. I have received report from Rona FIELDS and had the opportunity to ask questions and assume patient care.
--- NOTE | 2019-11-30 06:19 | NUR ---
Problems reprioritized. Patient report given, questions answered & plan of care reviewed with Kimmy FIELDS.
[2019-11-30] MEDS: lisinopril 2.5mg tablet PO SCH (07:24)
[2019-11-30] MEDS: pantoprazole 40mg Tablet.DR PO SCH (07:24)
[2019-11-30] MEDS: carVEDilol 3.125mg tablet PO SCH ×2 (07:25→20:00)
[2019-11-30] MEDS: amiodarone 100mg tablet PO SCH (07:25)
[2019-11-30] MEDS: atorvastatin 10mg tablet PO SCH (07:25)
[2019-11-30] MEDS: K, MAG and/or Phos replacement - Verify level? MC SCH (07:28)
[2019-11-30] MEDS: insulin Lispro (HumaLOG) vial - multi-dose SQ SCH ×3 (08:14→20:00)
--- NOTE | 2019-11-30 13:34 | NUR ---
Initial: Pt admit w/ increased foot pain and R great plantar toe and 4th toe DM ulcers worsening since prior recent admit. S/p bilateral BLE embolectomies prior admit r/t vascular disease w/ end stage meth-induced cardiomyopathy per [facility] note. Pt PO 75-100% avg carb controlled/heart healthy meals w/ double proteins TIDWM meeting needs. LBM 11/28. Will continue to monitor. Rec: 1. continue carb controlled/heart healthy diet per MD 2. double eggs at breakfast; double meats BIDLD 3. bowel care as needed 4. wt per rx Addendum: 11/30/19 at [address] Amended: Links added.
--- NOTE | 2019-11-30 17:00 | NUR ---
Blood glucose 74, patient asymptomatic, AAOx4, gave juice to patient, will continue to monitor closely.
--- NOTE | 2019-11-30 18:00 | NUR ---
Patient in room PCU 3026. I have received report from Kimmy FIELDS and had the opportunity to ask questions and assume patient care.
[2019-11-30] MEDS: heparin 25,000 UNIT/250ml bag 250 ML IV SCH (18:29)
--- NOTE | 2019-11-30 18:30 | NUR ---
Patient in room PCU 3026. I have received report from Tuan FIELDS and had the opportunity to ask questions and assume patient care.
[2019-11-30] MEDS: Melatonin 3mg tablet PO SCH (21:34)
[2019-11-30] MEDS: warfarin 3mg tablet PO SCH (21:34)
[2019-11-30] MEDS: insulin glargine (Lantus) pen - multi-dose SQ SCH (23:27)
[2019-12-01 02:00] VITALS: BP 102/63
[2019-12-01 06:00] VITALS: BP 118/78
--- NOTE | 2019-12-01 06:00 | NUR ---
Patient in room PCU 3026. I have received report from DONNIE Dickerson and had the opportunity to ask questions and assume patient care.
[2019-12-01 06:10] LABS: HEMATOCRIT 35.4 % (42.0-52.0); MEAN CORPUSCULAR HEMOGLOBIN 30.2 PG (27.0-31.0); MEAN CORPUSCULAR HGB CONC 33.2 g/dL (33.0-36.5); MONOCYTES # (AUTO) 1.2 X10'3 (0-0.9); RED BLOOD COUNT 3.89 X10'6 (4.70-6.10); RED CELL DISTRIBUTION WIDTH 14.3 % (11.5-14.5)
[2019-12-01 06:12] LABS: BASOPHILS % (AUTO) 0.3 % (0-1); EOSINOPHILS # (AUTO) 0.5 X10'3 (0-0.9); EOSINOPHILS % (AUTO) 3.6 % (0-6); HEMOGLOBIN 11.8 g/dl (14.0-17.9); LYMPHOCYTES # (AUTO) 3.9 X10'3 (1.1-4.8); LYMPHOCYTES % (AUTO) 30.9 % (21-51); MEAN CORPUSCULAR VOLUME 91.1 FL (78-98); MEAN PLATELET VOLUME 7.6 FL (7.4-10.4); MONOCYTES % (AUTO) 9.5 % (2-12); NEUTROPHILS % (AUTO) 55.7 % (42-75); PLATELET COUNT 721 X10'3 (140-440); WHITE BLOOD COUNT 12.5 X10'3 (4.5-11.0)
--- NOTE | 2019-12-01 06:25 | NUR ---
Problems reprioritized. Patient report given, questions answered & plan of care reviewed with Swetha FIELDS.
[2019-12-01 06:35] LABS: ALANINE AMINOTRANSFERASE 25 U/L (12-78); ALBUMIN 3.3 G/DL (3.4-5.0); ALBUMIN/GLOBULIN RATIO 0.9 (1.1-1.5); ALKALINE PHOSPHATASE 106 IU/L (46-116); ANION GAP 8 (8-16); ASPARTATE AMINO TRANSFERASE 16 U/L (10-37); BILIRUBIN,TOTAL 0.3 MG/DL (0.1-1.0); BLOOD UREA NITROGEN 20 MG/DL (7-18); BUN/CREATININE RATIO 20.8 (5.4-32.0); CALCIUM 8.7 MG/DL (8.5-10.1); CHLORIDE 104 MMOL/L (99-107); CREATININE 0.96 MG/DL (0.60-1.10); GLUCOSE 109 MG/DL (70-104); PHOSPHORUS 4.4 MG/DL (2.3-4.5); POTASSIUM 4.1 MMOL/L (3.5-5.1); SODIUM 140 MMOL/L (135-145); TOTAL CARBON DIOXIDE 28.4 MMOL/L (24-32); TOTAL PROTEIN 6.8 G/DL (6.4-8.2); eGFR 85 ML/MIN
[2019-12-01] MEDS: K, MAG and/or Phos replacement - Verify level? MC SCH (08:00)
[2019-12-01 09:48] LABS: ANISOCYTOSIS 1+; PLATELET ESTIMATE INCREASED
[2019-12-01 09:49] LABS: ACANTHOCYTES 2+; BURR CELLS 1+; POIKILOCYTOSIS FEW
[2019-12-01] MEDS: pantoprazole 40mg Tablet.DR PO SCH (09:58)
[2019-12-01] MEDS: amiodarone 100mg tablet PO SCH (10:00)
[2019-12-01] MEDS: atorvastatin 10mg tablet PO SCH (10:00)
[2019-12-01] MEDS: carVEDilol 3.125mg tablet PO SCH (10:00)
[2019-12-01] MEDS: lisinopril 2.5mg tablet PO SCH (10:01)
--- NOTE | 2019-12-01 10:02 | NUR ---
Unable to give insulin due to heavy load of other patient care. Patient blood sugar at 113. Will continue to monitor and cover at the lunchtime meal.
[2019-12-01] MEDS: insulin Lispro (HumaLOG) vial - multi-dose SQ SCH (13:16)
[2019-12-01] MEDS ORDERED: ondansetron 4mg rapidly disintigrating tab PO PRN (13:35)
[2019-12-01] MEDS ORDERED: AMIO100T PO (14:30)
[2019-12-01 15:00] VITALS: BP 110/71
--- NOTE | 2019-12-01 15:50 | NUR ---
Patient is discharged. All discharge instructions given to patient in writing and verbally. The patient had two PIVs that were removed. Catheter was intact, patient tolerated well and hemostasis achieved. Patient's new prescription was electronically transmitted to his pharmacy preference. Patient stated that he understands all of the discharge instructions and has no other questions. Patient took all personal possessions with him. [facility]. He was alert and oriented and in a stable condition.
== END 2019-12-01 15:53 | disposition home or self-care (01) | DRG 197 ==
LOC: ER 12:34 → ED HOLD 20:46 → CICU 2S 22:31 → PCU 3S 11-27 13:53
PROVIDERS: ADMIT Internal Medicine Critical Care Medicine; ATTEND Internal Medicine Critical Care Medicine
PROC: B4201ZZ Computerized Tomography (CT Scan) of Abdominal Aorta using Low Osmolar Contrast (ICD-10-PCS; principal; 2019-11-26)
PROC: B42H1ZZ Computerized Tomography (CT Scan) of Bilateral Lower Extremity Arteries using Low Osmolar Contrast (ICD-10-PCS; 2019-11-26)
DX: E11.51 Type 2 diabetes mellitus with diabetic peripheral angiopathy without gangrene (principal); E11.40 Type 2 diabetes mellitus with diabetic neuropathy, unspecified; I42.7 Cardiomyopathy due to drug and external agent; F15.11 Other stimulant abuse, in remission; I50.9 Heart failure, unspecified; I51.3 Intracardiac thrombosis, not elsewhere classified; Z79.01 Long term (current) use of anticoagulants; Z90.81 Acquired absence of spleen; Z59.0 Homelessness; Z79.899 Other long term (current) drug therapy
CPT/HCPCS: 36415; 71045; 75635; 80053; 80305; 81001; 82948; 83605; 83735; 84100; 84145; 84484; 85025; 85610; 85730; 87040; 87081; 87088; 93005; 93308; 93922; 93925; 96374; 96375; 99291; 99292; G0378; J1644; J1815; J2270; J2405; J7030; Q9967

== ENCOUNTER 2021-07-25 11:07 | Inpatient (IN) | payer MEDICAID ==
[~2021-07-25] VITALS: Ht 185.4 cm; Wt 90.8 kg
[~2021-07-25 11:07] MED LIST changes: +AMIO100T PO; -AMIO200T61 PO; -ATOR10TA PO; +ATOR10TA10 PO; +CARV3.122 PO; -COR3.125T PO; -COU1T PO; -COU5T PO; +INSU100I31 SQ; +LISI2.5T14 PO; -LISI2.5T2 PO; -PANT40TA4 PO; +PANT40TA54 PO; +WARF1TAB2 PO; +WARF5TAB2 PO; +ampicill/sulbac 1.5gm/NS 100ml 100 ML IV SCH
[2021-07-25 11:43] LABS: MEAN CORPUSCULAR HEMOGLOBIN 30.3 PG (27.0-31.0); MEAN CORPUSCULAR HGB CONC 33.7 g/dL (33.0-36.5); MEAN PLATELET VOLUME 7.9 FL (7.4-10.4)
[2021-07-25 11:44] LABS: HEMATOCRIT 44.6 % (42.0-52.0); MEAN CORPUSCULAR VOLUME 89.9 FL (78-98); PLATELET COUNT 523 X10'3 (140-440); RED BLOOD COUNT 4.96 X10'6 (4.70-6.10); RED CELL DISTRIBUTION WIDTH 14.4 % (11.5-14.5); WHITE BLOOD COUNT 11.3 X10'3 (4.5-11.0)
[2021-07-25 11:57] LABS: ALANINE AMINOTRANSFERASE 16 U/L (12-78); ALBUMIN 4.1 G/DL (3.4-5.0); ALBUMIN/GLOBULIN RATIO 1.2 (1.1-1.5); ALKALINE PHOSPHATASE 84 IU/L (46-116); ANION GAP 9 (8-16); ASPARTATE AMINO TRANSFERASE 21 U/L (10-37); BILIRUBIN,TOTAL 0.4 MG/DL (0.1-1.0); BLOOD UREA NITROGEN 14 MG/DL (7-18); BUN/CREATININE RATIO 11.5 (5.4-32.0); CALCIUM 8.7 MG/DL (8.5-10.1); CHLORIDE 109 MMOL/L (99-107); CREATININE 1.22 MG/DL (0.60-1.10); GLUCOSE 134 MG/DL (70-104); SODIUM 144 MMOL/L (135-145); TOTAL CARBON DIOXIDE 26.4 MMOL/L (24-32); TOTAL PROTEIN 7.6 G/DL (6.4-8.2); eGFR 64 ML/MIN
[2021-07-25 12:24] LABS: PLATELET ESTIMATE INCREASED; TOTAL CELLS COUNTED 100
[2021-07-25 12:25] LABS: ACANTHOCYTES 2+; ANISOCYTOSIS 1+; BURR CELLS 1+
[2021-07-25 12:26] LABS: ELLIPTOCYTES FEW
[2021-07-25] MEDS ORDERED: iohexol 350MG/ML 100ml bottle IV ONE (16:25)
[2021-07-25] MEDS ORDERED: ATOR10TA70 PO (19:30)
[2021-07-25] MEDS ORDERED: INSU100I65 SQ (19:30)
[2021-07-25] MEDS ORDERED: WARF6TAB49 PO (19:30)
[2021-07-25] MEDS ORDERED: diphenhydrAMINE 25mg capsule PO PRN (20:55)
[2021-07-25] MEDS ORDERED: bisacodyl 10mg suppository rectal RC PRN (20:55)
[2021-07-25] MEDS ORDERED: HYDROcodone/acetaminophen 5mg/325mg tablet PO PRN (20:55)
[2021-07-25] MEDS ORDERED: ondansetron/PF 4mg/2ml inj IV PRN (20:55)
[2021-07-25] MEDS ORDERED: HYDROcodone/acetaminophen 10/325mg tab PO PRN (20:55)
[2021-07-25] MEDS ORDERED: diphenhydrAMINE 50 mg/ml inj IV PRN (20:55)
[2021-07-25] MEDS ORDERED: acetaminophen 325mg tablet PO PRN ×2 (20:55)
[2021-07-25] MEDS ORDERED: magnesium hydroxide 30ml (MOM) UD suspension PO PRN (20:55)
[2021-07-25] MEDS ORDERED: acetaminophen 650mg rectal suppository RC PRN (20:55)
[2021-07-25] MEDS ORDERED: morphine 2 MG/ML inj. syringe IV PRN ×2 (20:55)
[2021-07-25] MEDS ORDERED: HYDROmorphone inj. 0.5 MG/0.5 ML DISP.SYRIN IV PRN (20:55)
[2021-07-25] MEDS ORDERED: mag hydrox/Alum hydrox/simeth 30ml oral suspension PO PRN (20:55)
[2021-07-25] MEDS ORDERED: ondansetron 4mg rapidly disintigrating tab PO PRN (20:55)
[2021-07-25] MEDS ORDERED: insulin Lispro (HumaLOG) vial - multi-dose SQ SCH (21:00)
[2021-07-25] MEDS ORDERED: glucagon, human recombinant 1mg kit SUBCUT PRN (21:00)
[2021-07-25] MEDS ORDERED: dextrose ORAL solution 15 GM/59 ML bottle PO PRN ×2 (21:00)
[2021-07-25] MEDS ORDERED: MESSAGE TO PHARMACY PO ONE (21:00)
[2021-07-25] MEDS ORDERED: dextrose 50%-water 50ml dispensing syringe IV PRN ×2 (21:00)
[2021-07-25] MEDS: insulin glargine (Lantus) pen - multi-dose SQ SCH (21:00)
[2021-07-25] MEDS ORDERED: temazepam 15mg capsule PO PRN (21:00)
[2021-07-25 21:14] LABS: HEMOGLOBIN A1C 6.4 % (4.5-6.2)
[2021-07-25] MEDS: carVEDilol 3.125mg tablet PO SCH (22:39)
[2021-07-25] MEDS: normal saline 1000ml 1,000 ML IV SCH (22:39)
[2021-07-25] MEDS: ampicill/sulbac 1.5gm/NS 100ml 100 ML IV SCH (22:47)
[2021-07-26 01:30] VITALS: BP 157/88
[2021-07-26] MEDS: normal saline 1000ml 1,000 ML IV SCH ×2 (02:02→15:39)
[2021-07-26 06:00] LABS: BASOPHILS # (AUTO) 0.1 X10'3 (0-0.2); BASOPHILS % (AUTO) 1.3 % (0-1); EOSINOPHILS # (AUTO) 0.5 X10'3 (0-0.9); EOSINOPHILS % (AUTO) 4.8 % (0-6); HEMATOCRIT 40.6 % (42.0-52.0); HEMOGLOBIN 13.5 g/dl (14.0-17.9); LYMPHOCYTES # (AUTO) 3.4 X10'3 (1.1-4.8); LYMPHOCYTES % (AUTO) 30.2 % (21-51); MEAN CORPUSCULAR HEMOGLOBIN 29.9 PG (27.0-31.0); MEAN CORPUSCULAR HGB CONC 33.3 g/dL (33.0-36.5); MEAN PLATELET VOLUME 8.2 FL (7.4-10.4); MONOCYTES # (AUTO) 1.3 X10'3 (0-0.9); MONOCYTES % (AUTO) 11.3 % (2-12); NEUTROPHILS # (AUTO) 5.9 X10'3 (1.8-7.7); NEUTROPHILS % (AUTO) 52.4 % (42-75); PLATELET COUNT 472 X10'3 (140-440); RED BLOOD COUNT 4.51 X10'6 (4.70-6.10); RED CELL DISTRIBUTION WIDTH 14.4 % (11.5-14.5); WHITE BLOOD COUNT 11.3 X10'3 (4.5-11.0)
[2021-07-26 06:18] LABS: ALANINE AMINOTRANSFERASE 27 U/L (12-78); ALBUMIN 3.4 G/DL (3.4-5.0); ALBUMIN/GLOBULIN RATIO 1.1 (1.1-1.5); ALKALINE PHOSPHATASE 62 IU/L (46-116); ANION GAP 6 (8-16); ASPARTATE AMINO TRANSFERASE 18 U/L (10-37); BILIRUBIN,TOTAL 0.5 MG/DL (0.1-1.0); BLOOD UREA NITROGEN 13 MG/DL (7-18); CALCIUM 8.1 MG/DL (8.5-10.1); CHLORIDE 110 MMOL/L (99-107); CREATININE 1.08 MG/DL (0.60-1.10); GLUCOSE 123 MG/DL (70-104); POTASSIUM 3.9 MMOL/L (3.5-5.1); SODIUM 144 MMOL/L (135-145); TOTAL CARBON DIOXIDE 27.9 MMOL/L (24-32); TOTAL PROTEIN 6.5 G/DL (6.4-8.2); eGFR 74 ML/MIN
--- NOTE | 2021-07-26 06:59 | NUR ---
Patient in room CL 344. I have received report from KVNG Edward and had the opportunity to ask questions and assume patient care.
[2021-07-26 07:00] VITALS: BP 170/88
--- NOTE | 2021-07-26 07:20 | NUR ---
Diabetes consult: Noted A1C 6.4 Well controlled, DM ed not indicated at this time. Addendum: 07/26/21 at [address] Amended: Links added.
[2021-07-26] MEDS ORDERED: non-formulary drug (Warfarin Sodium 1 TAB) PO SCH (08:00)
[2021-07-26] MEDS: ampicill/sulbac 1.5gm/NS 100ml 100 ML IV SCH ×4 (08:00→20:49)
[2021-07-26] MEDS: carVEDilol 3.125mg tablet PO SCH ×2 (08:35→20:50)
[2021-07-26] MEDS: pantoprazole 40mg Tablet.DR PO SCH (08:35)
[2021-07-26] MEDS: docusate sod 100mg capsule PO SCH ×2 (08:35→20:50)
[2021-07-26] MEDS: lisinopril 2.5mg tablet PO SCH (08:35)
[2021-07-26] MEDS: nicotine 21mg patch - 24 hr TD SCH (08:35)
[2021-07-26] MEDS ORDERED: potassium Cl 20 mEq SR tablet PO PRN ×2 (10:10)
[2021-07-26] MEDS ORDERED: potassium Cl 40MEQ/1/2NS 520ml 520 ML IV PRN (10:10)
[2021-07-26] MEDS ORDERED: magnesium Cl slow-release 64mg tablet PO PRN (10:10)
[2021-07-26] MEDS ORDERED: magnesium 4gm in 100ml NS 100 ML IV PRN (10:10)
[2021-07-26 11:00] VITALS: BP 172/88
[2021-07-26 15:10] LABS: URINE AMPHETAMINE SCREEN NEGATIVE (Neg); URINE BARBITUATE SCREEN NEGATIVE (Neg); URINE BENZODIAZEPINES SCREEN NEGATIVE (Neg); URINE CANNABINOID SCREEN NEGATIVE (Neg); URINE COCAINE SCREEN NEGATIVE (Neg); URINE METHADONE SCREEN NEGATIVE (Neg); URINE OPIATE SCREEN NEGATIVE (Neg); URINE PHENCYCLIDINE SCREEN NEGATIVE (Neg)
[2021-07-26 18:00] VITALS: BP 156/93
--- NOTE | 2021-07-26 18:48 | NUR ---
Problems reprioritized. Patient report given, questions answered & plan of care reviewed with DONNIE Miles.
--- NOTE | 2021-07-26 18:50 | NUR ---
Patient in room CL 344. I have received report from MEGAN FIELDS and had the opportunity to ask questions and assume patient care.
[2021-07-26] MEDS: K and/or MAG REPLACEMENT MC SCH (20:00)
[2021-07-26] MEDS: clopidogrel 75mg tablet PO SCH (20:49)
[2021-07-26] MEDS: lactobacillus rhamnosus 10,000 MMU CELLS/CAPSULE PO SCH (20:50)
[2021-07-26] MEDS: insulin glargine (Lantus) pen - multi-dose SQ SCH (21:00)
[2021-07-26 23:49] VITALS: BP 164/79
[2021-07-27] MEDS: ampicill/sulbac 1.5gm/NS 100ml 100 ML IV SCH ×2 (03:07→07:51)
[2021-07-27] MEDS: normal saline 1000ml 1,000 ML IV SCH (03:11)
--- NOTE | 2021-07-27 06:30 | NUR ---
Problems reprioritized. Patient report given, questions answered & plan of care reviewed with ROCIO RN.
--- NOTE | 2021-07-27 06:40 | NUR ---
Patient in room CL 344. I have received report from MARGA FIELDS and had the opportunity to ask questions and assume patient care.
[2021-07-27 07:20] LABS: BASOPHILS # (AUTO) 0.2 X10'3 (0-0.2); EOSINOPHILS # (AUTO) 0.4 X10'3 (0-0.9); MEAN PLATELET VOLUME 8.2 FL (7.4-10.4); MONOCYTES # (AUTO) 1.2 X10'3 (0-0.9); NEUTROPHILS # (AUTO) 6.8 X10'3 (1.8-7.7)
[2021-07-27 07:21] LABS: BASOPHILS % (AUTO) 1.9 % (0-1); EOSINOPHILS % (AUTO) 3.8 % (0-6); HEMATOCRIT 40.9 % (42.0-52.0); LYMPHOCYTES # (AUTO) 2.8 X10'3 (1.1-4.8); LYMPHOCYTES % (AUTO) 24.3 % (21-51); MEAN CORPUSCULAR HEMOGLOBIN 30.6 PG (27.0-31.0); MEAN CORPUSCULAR HGB CONC 34.3 g/dL (33.0-36.5); MEAN CORPUSCULAR VOLUME 89.1 FL (78-98); MONOCYTES % (AUTO) 10.4 % (2-12); NEUTROPHILS % (AUTO) 59.6 % (42-75); PLATELET COUNT 480 X10'3 (140-440); RED BLOOD COUNT 4.59 X10'6 (4.70-6.10); RED CELL DISTRIBUTION WIDTH 14.6 % (11.5-14.5); WHITE BLOOD COUNT 11.5 X10'3 (4.5-11.0)
[2021-07-27 07:34] LABS: ALANINE AMINOTRANSFERASE 27 U/L (12-78); ALBUMIN 3.5 G/DL (3.4-5.0); ALBUMIN/GLOBULIN RATIO 1.1 (1.1-1.5); ALKALINE PHOSPHATASE 66 IU/L (46-116); ANION GAP 11 (8-16); ASPARTATE AMINO TRANSFERASE 20 U/L (10-37); BILIRUBIN,TOTAL 0.5 MG/DL (0.1-1.0); BLOOD UREA NITROGEN 13 MG/DL (7-18); BUN/CREATININE RATIO 14.3 (5.4-32.0); CALCIUM 8.4 MG/DL (8.5-10.1); CHLORIDE 109 MMOL/L (99-107); CREATININE 0.91 MG/DL (0.60-1.10); GLUCOSE 108 MG/DL (70-104); MAGNESIUM 1.8 MG/DL (1.5-2.4); PHOSPHORUS 2.9 MG/DL (2.3-4.5); POTASSIUM 3.8 MMOL/L (3.5-5.1); SODIUM 144 MMOL/L (135-145); TOTAL CARBON DIOXIDE 23.9 MMOL/L (24-32); TOTAL PROTEIN 6.8 G/DL (6.4-8.2); eGFR 90 ML/MIN
[2021-07-27] MEDS: carVEDilol 3.125mg tablet PO SCH (07:49)
[2021-07-27] MEDS: lisinopril 2.5mg tablet PO SCH (07:50)
[2021-07-27] MEDS: lactobacillus rhamnosus 10,000 MMU CELLS/CAPSULE PO SCH (07:50)
[2021-07-27] MEDS: docusate sod 100mg capsule PO SCH (07:50)
[2021-07-27] MEDS: pantoprazole 40mg Tablet.DR PO SCH (07:50)
[2021-07-27] MEDS: clopidogrel 75mg tablet PO SCH (07:51)
[2021-07-27] MEDS: nicotine 21mg patch - 24 hr TD SCH (07:57)
[2021-07-27] MEDS: K and/or MAG REPLACEMENT MC SCH (08:00)
[2021-07-27 08:08] VITALS: BP 178/92
[2021-07-27] MEDS ORDERED: LACT1CAP26 PO (10:12)
[2021-07-27] MEDS ORDERED: PANT40TA54 PO (10:12)
[2021-07-27] MEDS ORDERED: CLOP75TA34 PO (10:12)
[2021-07-27] MEDS ORDERED: CEFD300C3 PO (10:12)
[2021-07-27 12:32] VITALS: BP 168/93
--- NOTE | 2021-07-27 12:54 | NUR ---
Received TC from RN stating pt pending discharge though with questions regarding DM management. Noted patient's DM is well controlled with A1c 6.4%, down from 11.6% 11/06/2019 when pt was officially dx with DM per EMR. Pt seen at bedside reports concern that he is consuming too many carbohydrates. RD educated pt on A1c trends and provided positive reinforcement regarding DM management. Pt states he just started seeing an MD for DM management about six months ago and his MD just reduced his insulin rx from 15 units to 10 units. Pt provided with A1c chart and written DM education. All questions were answered at this time. RD contact information provided and pt encouraged to reach out for further questions. Will remain available. Addendum: 07/27/21 at [address] Amended: Links added.
--- NOTE | 2021-07-27 13:12 | NUR ---
Patient discharged home today, patient was given discharge information and verbal educated on new medications and changes in lifestyle. Patient IV taken out of the arm canula was whole and intact upon discharge. Site showed minimal bleeding. Patient expressed verbal understanding of all follow up information. Patient is left with all of his belongings and walked with escort from floor PCT.
[2021-07-27] MEDS ORDERED: warfarin 3mg tablet PO ONE (21:00)
== END 2021-07-27 12:45 | disposition home or self-care (01) | DRG 383 ==
LOC: ER 11:07 → ED HOLD 20:57 → SUR 3N 07-26 00:41
PROVIDERS: ADMIT Family Medicine; ATTEND Family Medicine
PROC: B4201ZZ Computerized Tomography (CT Scan) of Abdominal Aorta using Low Osmolar Contrast (ICD-10-PCS; principal; 2021-07-25)
PROC: B42C1ZZ Computerized Tomography (CT Scan) of Pelvic Arteries using Low Osmolar Contrast (ICD-10-PCS; 2021-07-25)
PROC: B42G1ZZ Computerized Tomography (CT Scan) of Left Lower Extremity Arteries using Low Osmolar Contrast (ICD-10-PCS; 2021-07-25)
DX: L03.116 Cellulitis of left lower limb (principal); I77.72 Dissection of iliac artery; E11.42 Type 2 diabetes mellitus with diabetic polyneuropathy; E11.65 Type 2 diabetes mellitus with hyperglycemia; I10 Essential (primary) hypertension; E78.5 Hyperlipidemia, unspecified; F17.200 Nicotine dependence, unspecified, uncomplicated; I70.202 Unspecified atherosclerosis of native arteries of extremities, left leg; Z86.73 Personal history of transient ischemic attack (TIA), and cerebral infarction without residual deficits; Z59.00 Homelessness unspecified; Z90.81 Acquired absence of spleen; Z90.49 Acquired absence of other specified parts of digestive tract; Z79.899 Other long term (current) drug therapy; Z79.01 Long term (current) use of anticoagulants; Z79.4 Long term (current) use of insulin; Z71.6 Tobacco abuse counseling
CPT/HCPCS: 36415; 73706; 80053; 80305; 82948; 83036; 83735; 83880; 84100; 85007; 85025; 85610; 87081; 93005; 93922; 93970; 99285; G0378; J0295; J1815; J7030; Q9967

== ENCOUNTER 2022-02-18 10:36 | Emergency (ER) | payer MEDICAID ==
[~2022-02-18] VITALS: Ht 185.4 cm; Wt 91.0 kg
[~2022-02-18 10:36] MED LIST changes: -AMIO100T PO; -ATOR10TA10 PO; +ATOR10TA70 PO; +CLOP75TA34 PO; -INSU100I31 SQ; +INSU100I65 SQ; +LACT1CAP26 PO; -WARF1TAB2 PO; -WARF5TAB2 PO; +WARF6TAB49 PO; -ampicill/sulbac 1.5gm/NS 100ml 100 ML IV SCH
[2022-02-18 10:56] VITALS: BP 148/82
[2022-02-18] MEDS ORDERED: CEPH-585 PO (11:30)
== END 2022-02-18 11:43 | disposition home or self-care (01) ==
LOC: ER 10:36
DX: S90.31XA Contusion of right foot, initial encounter (principal); S80.811A Abrasion, right lower leg, initial encounter; L03.115 Cellulitis of right lower limb; I10 Essential (primary) hypertension; E11.9 Type 2 diabetes mellitus without complications; G62.9 Polyneuropathy, unspecified; Z86.718 Personal history of other venous thrombosis and embolism; F15.90 Other stimulant use, unspecified, uncomplicated; F17.210 Nicotine dependence, cigarettes, uncomplicated; Z72.89 Other problems related to lifestyle; Z59.00 Homelessness unspecified; Z95.5 Presence of coronary angioplasty implant and graft; Z90.49 Acquired absence of other specified parts of digestive tract; Z79.899 Other long term (current) drug therapy; Z79.2 Long term (current) use of antibiotics; Z79.01 Long term (current) use of anticoagulants; W01.0XXA Fall on same level from slipping, tripping and stumbling without subsequent striking against object, initial encounter; Y93.89 Activity, other specified; Y92.89 Other specified places as the place of occurrence of the external cause; Y99.8 Other external cause status
CPT/HCPCS: 73590; 99284

== ENCOUNTER 2022-07-10 09:36 | Emergency (ER) | payer MEDICAID ==
[~2022-07-10] VITALS: Ht 185.4 cm; Wt 96.0 kg
[~2022-07-10 09:36] MED LIST changes: +CEPH-585 PO
[2022-07-10 10:06] VITALS: BP 123/81
[2022-07-10] MEDS ORDERED: ALBU6.7H14 INH (10:54)
[2022-07-10] MEDS ORDERED: AMOX-117 PO (10:54)
[2022-07-10] MEDS ORDERED: PRED20TA PO (10:54)
== END 2022-07-10 11:15 | disposition home or self-care (01) ==
LOC: ER 09:37
DX: J40 Bronchitis, not specified as acute or chronic (principal); I10 Essential (primary) hypertension; E11.9 Type 2 diabetes mellitus without complications; F15.20 Other stimulant dependence, uncomplicated; Z59.00 Homelessness unspecified
CPT/HCPCS: 87502; 87503; 99283

== ENCOUNTER 2022-12-23 17:15 | Emergency (ER) | payer MEDICAID ==
[~2022-12-23] VITALS: Ht 185.4 cm; Wt 93.6 kg
[~2022-12-23 17:15] MED LIST changes: +ALBU6.7H14 INH
[2022-12-23 17:40] LABS: BASOPHILS % (AUTO) 0.5 % (0-1); EOSINOPHILS # (AUTO) 0.6 X10'3 (0-0.9); EOSINOPHILS % (AUTO) 5.9 % (0-6); HEMATOCRIT 41.5 % (42.0-52.0); HEMOGLOBIN 13.8 g/dl (14.0-17.9); LYMPHOCYTES # (AUTO) 3.8 X10'3 (1.1-4.8); LYMPHOCYTES % (AUTO) 39.8 % (21-51); MEAN CORPUSCULAR HEMOGLOBIN 29.8 PG (27.0-31.0); MEAN CORPUSCULAR HGB CONC 33.2 g/dL (33.0-36.5); MEAN CORPUSCULAR VOLUME 89.8 FL (78-98); MEAN PLATELET VOLUME 8.2 FL (7.4-10.4); MONOCYTES # (AUTO) 0.9 X10'3 (0-0.9); NEUTROPHILS # (AUTO) 4.3 X10'3 (1.8-7.7); NEUTROPHILS % (AUTO) 44.8 % (42-75); PLATELET COUNT 397 X10'3 (140-440); RED BLOOD COUNT 4.62 X10'6 (4.70-6.10); RED CELL DISTRIBUTION WIDTH 16.2 % (11.5-14.5); WHITE BLOOD COUNT 9.6 X10'3 (4.5-11.0)
[2022-12-23 17:55] LABS: ALANINE AMINOTRANSFERASE 30 U/L (12-78); ALBUMIN 3.7 G/DL (3.4-5.0); ALBUMIN/GLOBULIN RATIO 1.1 (1.1-1.5); ALKALINE PHOSPHATASE 81 IU/L (46-116); ANION GAP 7 (8-16); ASPARTATE AMINO TRANSFERASE 25 U/L (10-37); BILIRUBIN,TOTAL 0.4 MG/DL (0.1-1.0); BLOOD UREA NITROGEN 20 MG/DL (7-18); BUN/CREATININE RATIO 17.9 (10.0-20.0); CALCIUM 8.7 MG/DL (8.5-10.1); CHLORIDE 104 MMOL/L (99-107); CREATININE 1.12 MG/DL (0.60-1.10); GLUCOSE 118 MG/DL (70-104); SODIUM 138 MMOL/L (135-145); TOTAL CARBON DIOXIDE 26.7 MMOL/L (24-32); eGFR 70 ML/MIN
[2022-12-23] MEDS ORDERED: cloNIDine 0.1 mg tablet PO ONE (21:20)
[2022-12-23] MEDS ORDERED: LORazepam 1 MG tablet PO ONE (21:20)
[2022-12-23 22:02] VITALS: BP 156/95
== END 2022-12-23 22:03 | disposition home or self-care (01) ==
LOC: ER 17:15
DX: I16.0 Hypertensive urgency (principal); I10 Essential (primary) hypertension; E11.9 Type 2 diabetes mellitus without complications; F15.20 Other stimulant dependence, uncomplicated; Z98.890 Other specified postprocedural states; Z59.00 Homelessness unspecified
CPT/HCPCS: 36415; 71045; 80053; 83880; 84484; 85025; 93005; 99285

== ENCOUNTER 2023-07-02 15:30 | Emergency (ER) | payer MEDICAID ==
[~2023-07-02] VITALS: Ht 185.4 cm; Wt 91.6 kg
[~2023-07-02 15:30] MED LIST changes: -CEPH-585 PO
[2023-07-02 15:53] LABS: HEMOGLOBIN 13.6 g/dl (14.0-17.9); MEAN PLATELET VOLUME 8.5 FL (7.4-10.4); WHITE BLOOD COUNT 9.2 X10'3 (4.5-11.0)
[2023-07-02 15:54] LABS: HEMATOCRIT 40.7 % (42.0-52.0); MEAN CORPUSCULAR HEMOGLOBIN 30.1 PG (27.0-31.0); MEAN CORPUSCULAR HGB CONC 33.5 g/dL (33.0-36.5); MEAN CORPUSCULAR VOLUME 89.7 FL (78-98); PLATELET COUNT 387 X10'3 (140-440); RED BLOOD COUNT 4.53 X10'6 (4.70-6.10); RED CELL DISTRIBUTION WIDTH 15.2 % (11.5-14.5)
[2023-07-02 16:07] LABS: ALANINE AMINOTRANSFERASE 51 U/L (12-78); ALBUMIN 3.9 G/DL (3.4-5.0); ALKALINE PHOSPHATASE 83 IU/L (46-116); ANION GAP 8 (8-16); ASPARTATE AMINO TRANSFERASE 41 U/L (10-37); BILIRUBIN,TOTAL 0.3 MG/DL (0.1-1.0); BLOOD UREA NITROGEN 18 MG/DL (7-18); BUN/CREATININE RATIO 16.1 (10.0-20.0); CALCIUM 8.7 MG/DL (8.5-10.1); CHLORIDE 102 MMOL/L (99-107); CREATININE 1.12 MG/DL (0.60-1.10); GLUCOSE 98 MG/DL (70-104); POTASSIUM 3.6 MMOL/L (3.5-5.1); SODIUM 137 MMOL/L (135-145); TOTAL CARBON DIOXIDE 26.9 MMOL/L (24-32); TOTAL PROTEIN 7.7 G/DL (6.4-8.2); eGFR 70 ML/MIN
[2023-07-02 16:14] LABS: PRO BRAIN NATRIURETIC PEPTIDE 1112 PG/ML (0-125)
[2023-07-02] MEDS ORDERED: aspirin 81mg tab.chew PO ONE (16:20)
[2023-07-02 16:25] LABS: TOTAL CELLS COUNTED 100
[2023-07-02 16:26] LABS: BURR CELLS 1+; PLATELET ESTIMATE NORMAL
[2023-07-02] MEDS ORDERED: dexamethasone sod phosphate 10mg/ml inj IV STA (20:34)
[2023-07-02] MEDS ORDERED: NIRM1TAB PO ×2 (20:38→21:27)
[2023-07-02 21:28] VITALS: BP 164/88; PULSE 75; RESP 20; TEMP 99.4; O2SAT 94
== END 2023-07-02 21:29 | disposition home or self-care (01) ==
LOC: ER 15:31
DX: U07.1 COVID-19 (principal); R07.89 Other chest pain; I10 Essential (primary) hypertension; E11.42 Type 2 diabetes mellitus with diabetic polyneuropathy; F15.90 Other stimulant use, unspecified, uncomplicated; F17.210 Nicotine dependence, cigarettes, uncomplicated; Z59.00 Homelessness unspecified; Z95.5 Presence of coronary angioplasty implant and graft; Z79.899 Other long term (current) drug therapy; Z79.01 Long term (current) use of anticoagulants
CPT/HCPCS: 36415; 71045; 80053; 82948; 83880; 84484; 85007; 85025; 87811; 93005; 96374; 99285; J1100

== ENCOUNTER 2025-02-02 17:52 | Emergency (ER) | payer MEDICAID ==
[~2025-02-02] VITALS: Ht 185.4 cm; Wt 91.0 kg
[~2025-02-02 17:52] MED LIST changes: +NIRM1TAB PO
--- NOTE | 2025-02-02 18:01 | ELECTROCARDIOGRAPH REPORT ---
[facility] Test Date: 2025-02-02 Test Time: 17:58:26 Pat Name: CATHLEEN SULLIVAN Department: EMERGENCY ROOM Room: Gender: M [employer]: [place] : 1975 Requested By: JESSIKA HIGGINBOTHAM Order Number: [id number] Reading MD: Dr. Sage Toney Measurements Intervals [place] Rate: 57 P: 59 UT: 162 QRS: 42 QRSD: 136 T: 73 QT: 507 QTc: 494 Interpretive Statements Sinus bradycardia Left bundle branch block Baseline wander in lead(s) V3 Electronically Signed On 02-04-2025 19:15:[address] Sage Toney Please click the below link to view image of tracing.
[2025-02-02] MEDS ORDERED: ATOR-2 PO (18:20)
[2025-02-02] MEDS ORDERED: GABA-1405 PO (18:20)
[2025-02-02] MEDS ORDERED: ASPI-1397 PO (18:20)
[2025-02-02] MEDS ORDERED: CARV6.253 PO (18:20)
[2025-02-02] MEDS ORDERED: INSU100I31 SQ (18:20)
[2025-02-02] MEDS ORDERED: LISI40TA13 PO (18:20)
[2025-02-02] MEDS ORDERED: APIX5TAB3 PO (18:20)
[2025-02-02] MEDS ORDERED: CHLO50TA PO (18:20)
[2025-02-02] MEDS ORDERED: AMIO100T4 PO (18:20)
[2025-02-02] MEDS ORDERED: NITR0.4T48 (18:21)
[2025-02-02] MEDS ORDERED: PANT-47 PO (18:24)
--- NOTE | 2025-02-02 18:31 | Physician Documentation ---
History of Present Illness ~ Chief Complaint: Dizziness Stated Complaint: HYPOTENTION Time Seen by MD: 18:25 [facility] EMS HPI since two days light headed when standing. fell two days ago but did not completely syncopize. history of DVT. No CP/SOB. No weakness, no medication changes. Patient presents to the emergency room for near-syncope episodes. Worst episode was two days ago when he stood up tried fighting it and fell to the ground not striking his head. He states he had not actually passed completely out. Since that time there will be times when he stands in his blood pressure will drop. He has talked to his doctor about this and they are considering decreasing his blood pressure medications. He denies any chest pain or palpitations. Patient received 1 L of saline in route by EMS in his blood pressure improved from 88 systolic to well over 120. Medication Reconciliation Allergies: Coded Allergies: No Known Allergies (Unverified , 02/02/25) Scheduled Amiodarone HCl (Amiodarone HCl), 1 TAB PO DAILY, (Reported) Apixaban (Eliquis), 1 TAB PO BID, (Reported) Aspirin (Aspirin EC), 1 TAB PO DAILY, (Reported) Atorvastatin Calcium (Atorvastatin Calcium), 1 TAB PO DAILY, (Reported) Carvedilol (Carvedilol), 1 TAB PO BID, (Reported) Chlorthalidone (Chlorthalidone), 1 TAB PO DAILY, (Reported) Gabapentin (Gabapentin), 1 TAB PO TID, (Reported) Insulin Glargine,Hum.rec.anlog (Basaglar Kwikpen U-100), 12 UNIT SQ QAM, (Reported) Lisinopril* (Lisinopril*), 1 TAB PO DAILY, (Reported) Pantoprazole Sodium (PROTONIX tablet), 1 TAB PO DAILY, (Reported) Scheduled PRN Nitroglycerin (Nitroglycerin), for Per Protocol, (Reported) Discontinued Medications Albuterol Sulfate (Proventil Hfa), 2 PUFFS INH Q6H Discontinued Reason: patient no longer taking Atorvastatin Calcium (Atorvastatin Calcium), 1 TAB PO DAILY, (Reported) Discontinued Reason: Other Carvedilol (Carvedilol), 1 TAB PO Q12H, (Reported) Discontinued Reason: Other Clopidogrel Bisulfate (Clopidogrel), 75 MG PO DAILY Discontinued Reason: patient no longer taking Insulin Glargine,Hum.rec.anlog (Semglee Pen), 15 UNITS SQ DAILY, (Reported) Discontinued Reason: patient no longer taking Lactobacillus Rhamnosus (Culturelle), 10,000 MMU PO BID Discontinued Reason: patient no longer taking Lisinopril (Lisinopril), 1 TAB PO DAILY, (Reported) Discontinued Reason: Other Nirmatrelvir/Ritonavir (Paxlovid Co-Pack (Eua)), 3 EACH PO BID Discontinued Reason: patient no longer taking Nirmatrelvir/Ritonavir (Paxlovid Co-Pack (Eua)), 3 EACH PO BID Discontinued Reason: patient no longer taking Pantoprazole Sodium (Pantoprazole Sodium), 40 MG PO BKF Discontinued Reason: Other Warfarin Sodium (Warfarin Sodium), 1 TAB PO DAILY, (Reported) Discontinued Reason: patient no longer taking Past Medical History Past Medical History: Peripheral Neuropathy, Hypertension, *GI/HEPATOBILIARY*, Diabetes, Deep Vein Thrombosis Past Surgical History: abdominal surgery, angioplasty, appendectomy, other Other Past Surgical History: Splenectomy Alcohol Use: Occasionally Drug Use: methamphetamine Lives In: Homeless Review of Systems ROS All review of systems negative except as per HPI Physical Exam Vital Signs: Temperature: 98.2, Source: Oral, Heart Rate: 65, Respiratory Rate: 18, BP: 138/83, Pulse Oximetry: 97, Weight: 91.000 Physical Exam General: Patient is awake, alert, oriented x4 in no acute distress Head: Normocephalic and atraumatic. Eyes: Conjunctival normal. EOMI. PERRL. ENT: Mucous membranes moist. Neck: Supple, trachea is midline. Chest: Clear to auscultation bilaterally without rales, rhonchi, or wheezes. There is no accessory muscle use or retractions. Cardiac: RRR without murmurs, gallops, or rubs. Abd: Soft, nondistended, nontender, with normoactive bowel sounds. No guarding, rebound, or rigidity. Extremities: Normal strength. Normal range of motion. No deformities or edema. No calf tenderness to palpation Progress Results/Orders Results/Orders Orders - QUINCY ZHU MD Orthostatic Vs (02/02/25 20:07) Completed Orders - QUINCY ZHU MD Procalcitonin (02/02/25 18:26) D-Dimer (02/02/25 18:26) Potassium Cl Sr Tablet (K-Dur Tablet) (02/02/25 20:07) Medications Received in ER Medications (Trade) Dose Ordered Sig/Leo Route PRN Reason Start Time Stop Time Status Last Admin Dose Admin (K-DUR tablet) 40 meq ONCE STAT PO 02/02/25 20:07 02/02/25 20:09 DC 02/02/25 20:19 40 MEQ Vital Signs 02/02/25 02/02/25 02/02/25 02/02/25 17:59 18:39 18:50 20:22 Temp 98.2 98.2 Pulse 65 56 64 Resp 18 14 B/P (MAP) 138/83 133/83 (100) 136/89 Pulse Ox 97 100 02/02/25 02/02/25 20:23 20:24 Pulse 70 64 B/P (MAP) 128/87 132/81 Laboratory Tests Test 02/02/25 19:02 White Blood Count 11.2 H Red Blood Count 4.13 L Hemoglobin 13.3 L Hematocrit 38.1 L Mean Corpuscular Volume 92.3 Mean Corpuscular Hemoglobin 32.2 H Mean Corpuscular Hemoglobin Concent 34.9 Red Cell Distribution Width 15.2 H Platelet Count 382 Mean Platelet Volume 8.0 Neutrophils (%) (Auto) 48.2 Lymphocytes (%) (Auto) 36.9 Monocytes (%) (Auto) 10.5 Eosinophils (%) (Auto) 4.1 Basophils (%) (Auto) 0.3 Neutrophils # (Auto) 5.4 Lymphocytes # (Auto) 4.1 Monocytes # (Auto) 1.2 H Eosinophils # (Auto) 0.5 Basophils # (Auto) 0.0 CBC Comment D-Dimer 0.25 D-Dimer Comment Sodium Level 141 Potassium Level 3.1 L Chloride Level 105 Carbon Dioxide Level 24.7 Anion Gap 11 Blood Urea Nitrogen 33 H Creatinine 1.75 H Estimated GFR/1.73 m2 42 BUN/Creatinine Ratio 18.9 Glucose Level 102 Calcium Level 8.7 Troponin I High Sensitivity 19 Pro-B-Type Natriuretic Peptide 127 H Albumin 3.5 Procalcitonin 0.05 Chemistry Comments EKG/XRAY/CT/US/VASC/MRI EKG : Additional Comment EKG interpreted by myself shows time of 1758, rate 57, sinus bradycardia, normal axis, left bundle-branch block, no ST changes Chest X-Ray : Additional Comments Exam: CHEST,SINGLE VIEW CHEST RADIOGRAPH Indication: CP Technique: Single frontal view of the chest was obtained Comparison: DI CHEST,SINGLE VIEW on DOS: 07/02/23, CHEST,SINGLE VIEW on DOS: 12/23/22, CHEST,SINGLE VIEW on DOS: 11/26/19 FINDINGS: Lines and Tubes: None Lungs: No focal consolidation. Pleura: No effusion. No pneumothorax. Cardiomediastinal contours: Unremarkable Bones: No acute osseous abnormality. IMPRESSION: No acute cardiopulmonary disease. Medical Decision Making Findings Patient presented to the emergency room for evaluation of near-syncope. Differe ntials include but are not limited to pulmonary embolism, vasovagal, dehydration, medication side effect, cardiac arrhythmia therefore emergent labs ordered. Labs show negative troponins with a reassuring EKG. No chest pain or palpitations reported. Given patient's near syncopal episodes upon standing I do believe he is suffering from vagal episodes. Blood pressure improved with fluids he has been instructed to drank more fluids. The need to follow up with his doctor for consideration of decreasing his blood pressure medications discussed. I also discussed in detail for him not to fight his syncopal episodes but rather sit or lay down to avoid head strike and he acknowledges this. Departure Disposition: 01 HOME / SELF CARE / HOMELESS Impression: Primary Impression: Vasovagal near syncope Condition: Stable Discharge Instructions: Near-Syncope Additional Instructions: Drink plenty of fluids. Follow up tomorrow with your doctor regarding blood pressure medication adjustment. If you feel like you are going to pass out do not fight it but sit down or lay down to avoid head strike. Referrals: NO PRIMARY CARE PROVIDER (PCP) Education Educated: Patient Educated regarding: diagnosis, treatment, need for follow up Signature Scribe Signature: No scribe Attestation: The note accurately reflects work and decisions made by me.Quincy Zhu MD 02/02/25 20:45 QUINCY ZHU MD Feb 02, 2025 18:31
[2025-02-02 19:15] LABS: MEAN PLATELET VOLUME 8.0 FL (7.4-10.4); RED CELL DISTRIBUTION WIDTH 15.2 % (11.5-14.5)
[2025-02-02 19:36] LABS: CREATININE 1.75 MG/DL (0.60-1.10); PRO BRAIN NATRIURETIC PEPTIDE 127 PG/ML (0-125); TOTAL CARBON DIOXIDE 24.7 MMOL/L (24-32); eCRCL 58 ML/MIN; eGFR 42 ML/MIN
[2025-02-02] MEDS: potassium Cl 20 mEq SR tablet PO STA (20:19)
[2025-02-02 20:55] VITALS: BP 145/81; PULSE 87; RESP 16; TEMP 98.2; O2SAT 100
== END 2025-02-02 20:56 | disposition home or self-care (01) ==
LOC: ER 17:53
DX: R55 Syncope and collapse (principal); E11.42 Type 2 diabetes mellitus with diabetic polyneuropathy; F15.90 Other stimulant use, unspecified, uncomplicated; I10 Essential (primary) hypertension; Z86.718 Personal history of other venous thrombosis and embolism; Z90.49 Acquired absence of other specified parts of digestive tract; Z79.899 Other long term (current) drug therapy; Z72.89 Other problems related to lifestyle; Z59.00 Homelessness unspecified
CPT/HCPCS: 36415; 71045; 80048; 83880; 84145; 84484; 85025; 85379; 93005; 99285